=== PATIENT | male | born 1965 | race Hispanic/Latino ===

== ENCOUNTER 2021-06-23 10:57 | Inpatient (IN) | payer SELFPAY ==
[2021-06-23] MEDS ORDERED: methylPREDNISolone Sod Succinate 125 MG/2 ML INJ IV ONE (11:49)
[2021-06-23] MEDS ORDERED: ALBUTEROL 2.5 MG/3 ML NEBU IH ONE (11:49)
[2021-06-23] MEDS ORDERED: IPRATROPIUM 0.02% NEBU 2.5 ML IH ONE (11:49)
[2021-06-23] MEDS ORDERED: MAGNESIUM SULFATE 2 GM/50 ML BAG IV ONE (11:49)
--- NOTE | 2021-06-23 12:14 | Emergency Department Report ---
ED General Adult HPI - General Chief complaint: Dyspnea/Respdistress Stated complaint: DIFFICULTY BREATHING Time Seen by Provider: 06/23/21 11:48 Source: patient Mode of arrival: Stretcher Limitations: Physical Limitation - History of Present Illness Initial comments: The patient presents to the emergency department with a chief complaint of shortness of breath. Patient reportedly has a history of COPD. Upon EMS arrival to his home his O2 sats were in the 80s. Patient complains of shortness of breath but denies chest pain, abdominal pain, or headache. Patient is a moderate respiratory distress upon arrival to the ED. The patient is on 3 L O2 with O2 sats of 92%. The patient received a nebulizer treatment of albuterol prior to arrival to the ED. -: unknown Severity scale (0 -10): 0 Consistency: constant Improves with: none Worsens with: movement Associated Symptoms: denies other symptoms Treatments Prior to Arrival: none - Related Data Previous Rx's Medication Instructions Recorded Last Taken Type Aspirin [Aspirin Enteric Coated] 81 mg PO DAILY #90 tablet. 11/29/13 Unknown Rx Enalapril Maleate [Vasotec] 10 mg PO DAILY #90 tablet 11/29/13 Unknown Rx Gabapentin [Neurontin] 300 mg PO BID #60 capsule 11/29/13 Unknown Rx Insulin Regular, Human [HumuLIN R] 25 unit SQ ACHS #10 ml 11/29/13 Unknown Rx Ranitidine HCl [Zantac] 150 mg PO BID #60 tablet 11/29/13 Unknown Rx Syring-Needl,Disp,Insul,0.3 ml 1 each ACHS #120 disp.syrin 11/29/13 Unknown Rx [Insulin Syringe] Albuterol Sulfate [Ventolin HFA] 2 puff IH Q4H PRN #1 hfa.aer.ad 01/10/14 Unknown Rx Azithromycin [Zithromax Z-BRIAN] 250 mg PO DAILY #6 tablet 01/10/14 Unknown Rx predniSONE [Deltasone] 20 mg PO QDAY #5 tab 01/10/14 Unknown Rx Allergies Allergy/AdvReac Type Severity Reaction Status Date / Time acetaminophen [From Lortab] Allergy Unknown Verified 11/29/13 13:07 codeine Allergy Unknown Verified 11/29/13 13:07 hydrocodone bitartrate Allergy Unknown Verified 11/29/13 13:07 [From Lortab] oxycodone HCl [From Percocet] Allergy Unknown Verified 11/29/13 13:07 Penicillins Allergy Unknown Verified 11/29/13 13:07 ED Review of Systems ROS: Stated complaint: DIFFICULTY BREATHING Other details as noted in HPI Comment: All other systems reviewed and negative Constitutional: denies: chills, fever Eyes: denies: eye pain, eye discharge, vision change ENT: denies: ear pain, throat pain Respiratory: shortness of breath. denies: cough, wheezing Cardiovascular: denies: chest pain, palpitations Endocrine: no symptoms reported Gastrointestinal: denies: abdominal pain, nausea, diarrhea Genitourinary: denies: urgency, dysuria Musculoskeletal: denies: back pain, joint swelling, arthralgia Skin: denies: rash, lesions Neurological: denies: headache, weakness, paresthesias Psychiatric: denies: anxiety, depression Hematological/Lymphatic: denies: easy bleeding, easy bruising ED Past Medical Hx - Past Medical History Hx Hypertension: Yes Hx Diabetes: Yes Hx COPD: Yes Additional medical history: neuropathy, varicose veins - Social History Smoking Status: Current Every Day Smoker Substance Use Type: Alcohol, Marijuana, Non Opiate Pain - Medications Home Medications: Home Medications Medication Instructions Recorded Confirmed Last Taken Type Aspirin [Aspirin Enteric Coated] 81 mg PO DAILY #90 tablet. 11/29/13 Unknown Rx Enalapril Maleate [Vasotec] 10 mg PO DAILY #90 tablet 11/29/13 Unknown Rx Gabapentin [Neurontin] 300 mg PO BID #60 capsule 11/29/13 Unknown Rx Insulin Regular, Human [HumuLIN R] 25 unit SQ ACHS #10 ml 11/29/13 Unknown Rx Ranitidine HCl [Zantac] 150 mg PO BID #60 tablet 11/29/13 Unknown Rx Syring-Needl,Disp,Insul,0.3 ml 1 each ACHS #120 disp.syrin 11/29/13 Unknown Rx [Insulin Syringe] Albuterol Sulfate [Ventolin HFA] 2 puff IH Q4H PRN #1 hfa.aer.ad 01/10/14 Unknown Rx Azithromycin [Zithromax Z-BRIAN] 250 mg PO DAILY #6 tablet 01/10/14 Unknown Rx predniSONE [Deltasone] 20 mg PO QDAY #5 tab 01/10/14 Unknown Rx ED Physical Exam - General General appearance: alert, in no apparent distress - Head Head exam: Present: atraumatic, normocephalic - Eye Eye exam: Present: normal appearance - ENT ENT exam: Present: mucous membranes moist - Neck Neck exam: Present: normal inspection - Respiratory Respiratory exam: Present: respiratory distress (Moderate), rales, decreased breath sounds - Cardiovascular Cardiovascular Exam: Present: normal rhythm, tachycardia. Absent: systolic murmur, diastolic murmur, rubs, gallop - GI/Abdominal GI/Abdominal exam: Present: soft, normal bowel sounds. Absent: distended, tenderness - Rectal Rectal exam: Present: deferred - Extremities Exam Extremities exam: Present: normal inspection - Back Exam Back exam: Present: normal inspection - Neurological Exam Neurological exam: Present: alert, oriented X3, CN II-XII intact. Absent: motor sensory deficit - Psychiatric Psychiatric exam: Present: normal affect, normal mood - Skin Skin exam: Present: warm, dry, intact, normal color. Absent: rash ED Course Vital Signs 06/23/21 06/23/21 06/23/21 10:57 12:33 14:31 Temperature 98.1 F Pulse Rate 131 H 123 H 123 H Respiratory 24 28 H 30 H Rate Blood Pressure 126/66 133/61 132/61 [Left] O2 Sat by Pulse 92 91 91 Oximetry 06/23/21 15:02 Temperature Pulse Rate Respiratory Rate Blood Pressure [Left] O2 Sat by Pulse 88 Oximetry ED Medical Decision Making - Lab Data Result diagrams: 06/23/21 Unknown 06/23/21 Unknown Lab Results 06/23/21 06/23/21 06/23/21 Range/Units Unknown Unknown Unknown WBC 25.3 H (4.5-11.0) K/mm3 RBC 5.47 H (3.65-5.03) M/mm3 Hgb 16.2 H (11.8-15.2) gm/dl Hct 49.2 H (35.5-45.6) % MCV 90 (84-94) fl MCH 30 (28-32) pg MCHC 33 (32-34) % RDW 13.4 (13.2-15.2) % Plt Count 155 (140-440) K/mm3 Seg Neutrophils % [employer] PT (12.2-14.9) Sec. INR (0.87-1.13) APTT (24.2-36.6) Sec. Sodium 128 L (137-145) mmol/L Potassium 4.0 (3.6-5.0) mmol/L Chloride 90.7 L (98-107) mmol/L Carbon Dioxide 21 L (22-30) mmol/L Anion Gap 20 mmol/L BUN 24 H (9-20) mg/dL Creatinine 0.3 L (0.8-1.3) mg/dL Estimated GFR > 60 ml/min BUN/Creatinine Ratio 80 % Glucose 370 H (75-100) mg/dL Lactic Acid 4.60 H* (0.7-2.0) mmol/L Calcium 8.6 (8.4-10.2) mg/dL Total Bilirubin 2.60 H (0.1-1.2) mg/dL AST 42 H (5-40) units/L ALT 36 (7-56) units/L Alkaline Phosphatase 69 (35-129) units/L Troponin T < 0.010 (0.00-0.029) ng/mL NT-Pro-B Natriuret Pep 2555 H (0-900) pg/mL Total Protein 6.8 (6.3-8.2) g/dL Albumin 2.9 L (3.9-5) g/dL Albumin/Globulin Ratio 0.7 % 12/14/21 Range/Units Unknown WBC (4.5-11.0) K/mm3 RBC (3.65-5.03) M/mm3 Hgb (11.8-15.2) gm/dl Hct (35.5-45.6) % MCV (84-94) fl MCH (28-32) pg MCHC (32-34) % RDW (13.2-15.2) % Plt Count (140-440) K/mm3 Seg Neutrophils % PT 17.8 H (12.2-14.9) Sec. INR 1.33 H (0.87-1.13) APTT 31.4 (24.2-36.6) Sec. Sodium (137-145) mmol/L Potassium (3.6-5.0) mmol/L Chloride (98-107) mmol/L Carbon Dioxide (22-30) mmol/L Anion Gap mmol/L BUN (9-20) mg/dL Creatinine (0.8-1.3) mg/dL Estimated GFR ml/min BUN/Creatinine Ratio % Glucose (75-100) mg/dL Lactic Acid (0.7-2.0) mmol/L Calcium (8.4-10.2) mg/dL Total Bilirubin (0.1-1.2) mg/dL AST (5-40) units/L ALT (7-56) units/L Alkaline Phosphatase (35-129) units/L Troponin T (0.00-0.029) ng/mL NT-Pro-B Natriuret Pep (0-900) pg/mL Total Protein (6.3-8.2) g/dL Albumin (3.9-5) g/dL Albumin/Globulin Ratio % - EKG Data -: EKG Interpreted by [place] EKG shows normal: sinus rhythm Rate: tachycardia - Radiology Data Radiology results: report reviewed - Medical Decision Making Sepsis protocol initiated Due to the patient's history of CHF with elevated BNP 30 cc/kg IV fluids not initiated due to concern of volume overload and respiratory failure Patient received IV antibiotics Critical Care Time: Yes Critical care time in (mins) excluding proc time.: 35 Critical care attestation.: If time is entered above; I have spent that time in minutes in the direct care of this critically ill patient, excluding procedure time. ED Disposition Clinical Impression: Sepsis, Pneumonia, Hypoxia Disposition: 09 ADMITTED INPATIENT Is pt being admited?: Yes Does the pt Need Aspirin: No Condition: Fair
--- NOTE | 2021-06-23 12:15 | XRay Report ---
CHEST 1 VIEW INDICATION / CLINICAL INFORMATION: Dyspnea. COMPARISON: 12/19/2014. FINDINGS: SUPPORT DEVICES: None. HEART / MEDIASTINUM: Cardiac silhouette is mildly enlarged. LUNGS / PLEURA: Left perihilar and infrahilar airspace disease. No pneumothorax. ADDITIONAL FINDINGS: No significant additional findings. IMPRESSION: Left perihilar and infrahilar airspace disease concerning for infection. Signer Name: Jacek Ware MD Signed: 06/23/2021 12:10 PM Workstation Name: [id number]
[2021-06-23] MEDS ORDERED: SODIUM CHLORIDE 0.9% 1000 ML 1,000 ML IV ONE (12:50)
[2021-06-23 13:52] LABS: Hematocrit 49.2 % (35.5-45.6); Hemoglobin 16.2 gm/dl (11.8-15.2); Mean Corpuscular HGB Conc 33 % (32-34); Mean Corpuscular Volume 90 fl (84-94); Platelet Count 155 K/mm3 (140-440); Red Blood Count 5.47 M/mm3 (3.65-5.03); Red Cell Distribution Width 13.4 % (13.2-15.2)
[2021-06-23 13:59] LABS: INR 1.33 (0.87-1.13)
[2021-06-23 14:00] LABS: Partial Thromboplastin Time 31.4 Sec. (24.2-36.6)
[2021-06-23 14:13] LABS: Alanine Aminotransferase 36 units/L (7-56); Albumin 2.9 g/dL (3.9-5); Blood Urea Nitrogen 24 mg/dL (9-20); Calcium 8.6 mg/dL (8.4-10.2); Hemolysis Index 116
[2021-06-23 14:24] LABS: BUN/Creatinine Ratio 80
[2021-06-23 16:05] LABS: Bilirubin,Urine NEG (Negative); Blood,Urine MOD (Negative); Color,Urine Yellow (Yellow)
[2021-06-23 16:15] LABS: Amphetamine Screen,Urine PRESUMPTIVE POSITIVE; Benzodiazepines Screen,Urine PRESUMPTIVE NEGATIVE; Cannabinoid Screen,Urine PRESUMPTIVE NEGATIVE; Cocaine Screen,Urine PRESUMPTIVE NEGATIVE; Methadone Screen,Urine PRESUMPTIVE NEGATIVE; Opiate Screen,Urine PRESUMPTIVE NEGATIVE
[2021-06-23 16:48] LABS: Band Neutrophils # (Manual) 1.2 K/mm3; Monocytes % (Manual) 8 % (0.0-7.3)
[2021-06-23 16:49] LABS: Platelet Estimate Consistent w Auto
[2021-06-24] MEDS ORDERED: ALPRAZolam 0.25 MG TAB ONE (00:04)
[2021-06-24] MEDS: ALPRAZolam 0.25 MG TAB PO PRN (00:20)
[2021-06-24] MEDS ORDERED: INSULIN LISPRO 100 UNIT/ML SUB-Q ONE (00:42)
[2021-06-24] MEDS ORDERED: methylPREDNISolone Sod Succinate 125 MG/2 ML INJ IV SCH (06:00)
[2021-06-24] MEDS ORDERED: cefTRIAXone/NS 2 GM/100 ML 2 GM/100 ML BAG IV SCH (06:00)
--- NOTE | 2021-06-24 06:46 | History and Physical Report ---
History of Present Illness Date of examination: 06/23/21 Date of admission: 06/23/21 15:16 Chief complaint: Shortness of breath for 2 to 3 days History of present illness: 54-year-old male with history of insulin-dependent diabetes, hypertension and obesity presents to the emergency room with chief complaint of shortness of breath. As per EMS his oxygen sats were in the low 80s and they arrived at home. Patient complains of shortness of breath for the last 3 days. Patient phonating moderate respiratory distress and was brought to the emergency room. No fever or chills. Patient is a very poor historian. Does not do much information. Cough present. Vaccination status not known. Patient has a history of COPD. 3 L nasal cannula oxygen O2 sats improved to 92%. - Past Medical History --Hypertension: Yes --Diabetes: Yes --COPD: Yes Additional medical history: neuropathy, varicose veins - Social History --Smoking Status: Current Every Day Smoker --Substance Use Type: Alcohol, Marijuana, Non Opiate Pain - Medications --Home Medications: Home Medications Medication Instructions Recorded Confirmed Last Taken Type Aspirin [Aspirin Enteric Coated] 81 mg PO DAILY #90 tablet. 11/29/13 Unknown Rx Enalapril Maleate [Vasotec] 10 mg PO DAILY #90 tablet 11/29/13 Unknown Rx Gabapentin [Neurontin] 300 mg PO BID #60 capsule 11/29/13 Unknown Rx Insulin Regular, Human [HumuLIN R] 25 unit SQ ACHS #10 ml 11/29/13 Unknown Rx Ranitidine HCl [Zantac] 150 mg PO BID #60 tablet 11/29/13 Unknown Rx Syring-Needl,Disp,Insul,0.3 ml 1 each MC ACHS #120 disp.syrin 11/29/13 Unknown Rx [Insulin Syringe] Albuterol Sulfate [Ventolin HFA] 2 puff IH Q4H PRN #1 hfa.aer.ad 01/10/14 Unknown Rx Azithromycin [Zithromax Z-BRIAN] 250 mg PO DAILY #6 tablet 01/10/14 Unknown Rx predniSONE [Deltasone] 20 mg PO QDAY #5 tab 01/10/14 Unknown Rx Review of Systems ROS: Stated complaint: DIFFICULTY BREATHING Other details as noted in HPI Comment: All other systems reviewed and negative Constitutional: denies: chills, fever Eyes: denies: eye pain, eye discharge, vision change ENT: denies: ear pain, throat pain Respiratory: shortness of breath. denies: cough, wheezing Cardiovascular: denies: chest pain, palpitations Endocrine: no symptoms reported Gastrointestinal: denies: abdominal pain, nausea, diarrhea Genitourinary: denies: urgency, dysuria Musculoskeletal: denies: back pain, joint swelling, arthralgia Skin: denies: rash, lesions Neurological: denies: headache, weakness, paresthesias Psychiatric: denies: anxiety, depression Hematological/Lymphatic: denies: easy bleeding, easy bruising Medications and Allergies Allergies Allergy/AdvReac Type Severity Reaction Status Date / Time acetaminophen [From Lortab] Allergy Unknown Verified 11/29/13 13:07 codeine Allergy Unknown Verified 11/29/13 13:07 hydrocodone bitartrate Allergy Unknown Verified 11/29/13 13:07 [From Lortab] oxycodone HCl [From Percocet] Allergy Unknown Verified 11/29/13 13:07 Penicillins Allergy Unknown Verified 11/29/13 13:07 Home Medications Medication Instructions Recorded Confirmed Last Taken Type Aspirin [Aspirin Enteric Coated] 81 mg PO DAILY #90 tablet. 11/29/13 Unknown Rx Enalapril Maleate [Vasotec] 10 mg PO DAILY #90 tablet 11/29/13 Unknown Rx Gabapentin [Neurontin] 300 mg PO BID #60 capsule 11/29/13 Unknown Rx Insulin Regular, Human [HumuLIN R] 25 unit SQ ACHS #10 ml 11/29/13 Unknown Rx Ranitidine HCl [Zantac] 150 mg PO BID #60 tablet 11/29/13 Unknown Rx Syring-Needl,Disp,Insul,0.3 ml 1 each ACHS #120 disp.syrin 11/29/13 Unknown Rx [Insulin Syringe] Albuterol Sulfate [Ventolin HFA] 2 puff IH Q4H PRN #1 hfa.aer.ad 01/10/14 Unknown Rx Azithromycin [Zithromax Z-BRIAN] 250 mg PO DAILY #6 tablet 01/10/14 Unknown Rx predniSONE [Deltasone] 20 mg PO QDAY #5 tab 01/10/14 Unknown Rx Active Meds: Active Medications Albuterol (Albuterol 2.5 Mg/3 Ml Nebu) 2.5 mg IH Q6HRT YONAS Albuterol/Ipratropium (Ipratropium/Albuterol Sulfate 3 Ml Ampul.Neb) 1 ampul IH Q6HRT YONAS Alprazolam (Alprazolam 0.25 Mg Tab) 0.125 mg PO Q8H PRN PRN Reason: Anxiety Last Admin: 06/24/21 00:20 Dose: 0.125 mg Documented by: Azithromycin (Azithromycin 250 Mg Tab) 500 mg PO QDAY YONAS; Protocol Heparin Sodium (Porcine) (Heparin 5,000 Unit/1 Ml Vial) 5,000 unit SUB-Q Q12HR YONAS Ceftriaxone Sodium (Rocephin/Ns 2 Gm/100 Ml) 2 gm in 100 mls @ 200 mls/hr IV Q24H YONAS; Protocol Insulin Human Lispro (Insulin Lispro 100 Unit/Ml) 0 unit SUB-Q ACHS YONAS; Protocol Methylprednisolone Sodium Succinate (Methylprednisolone Sod Succinate 125 Mg/2 Ml Inj) 125 mg IV Q8HR YONAS Exam - Constitutional Vitals: Temp Pulse Resp BP Pulse Ox 98.4 F 123 H 32 H 130/60 93 06/23/21 19:45 06/24/21 04:00 06/24/21 04:00 06/24/21 04:00 06/24/21 04:00 General appearance: Present: severe distress, well-nourished - EENT Eyes: Present: PERRL ENT: hearing intact, clear oral mucosa - Neck Neck: Present: supple, normal ROM - Respiratory Respiratory effort: normal Respiratory: bilateral: CTA, rhonchi, wheezing - Cardiovascular Heart rate: 98 Rhythm: regular Heart Sounds: Present: S1 & S2. Absent: rub, click - Extremities Extremities: no ischemia, pulses intact, pulses symmetrical, No edema Peripheral Pulses: within normal limits - Abdominal General gastrointestinal: Present: soft, non-tender, non-distended, normal bowel sounds Male genitourinary: Present: normal - Rectal Rectal Exam: deferred - Integumentary Integumentary: Present: clear, warm, dry - Musculoskeletal Musculoskeletal: gait normal, strength equal bilaterally - Psychiatric Psychiatric: appropriate mood/affect, intact judgment & insight - Neurologic Neurologic: CNII-XII intact, moves all extremities - Allied Health Allied health notes reviewed: nursing, case management HEART Score - HEART Score History: Moderately suspicious Age: 45-65 Risk factors: > 3 risk factors or hx of atherosclerotic disease Troponin: Troponin T < 0.010 ng/mL (0.00-0.029) 06/23/21 Unknown Troponin: 1-3x normal limit - Critical Actions Critical Actions: 0-3 pts:0.9-1.7%risk of adverse cardiac event.Candidate for discharge Results - Labs CBC & Chem 7: 06/23/21 Unknown 06/23/21 Unknown Labs: Laboratory Last Values WBC 25.3 K/mm3 (4.5-11.0) H 06/23/21 Unknown RBC 5.47 M/mm3 (3.65-5.03) H 06/23/21 Unknown Hgb 16.2 gm/dl (11.8-15.2) H 06/23/21 Unknown Hct 49.2 % (35.5-45.6) H 06/23/21 Unknown MCV 90 fl (84-94) 06/23/21 Unknown MCH 30 pg (28-32) 06/23/21 Unknown MCHC 33 % (32-34) 06/23/21 Unknown RDW 13.4 % (13.2-15.2) 06/23/21 Unknown Plt Count 155 K/mm3 (140-440) 06/23/21 Unknown Add Manual Diff Complete 06/23/21 Unknown Seg Neutrophils % [employer] 06/23/21 Unknown Seg Neuts % (Manual) 82 % (40.0-70.0) H 06/23/21 Unknown Band Neutrophils % 5 % 06/23/21 Unknown Lymphocytes % (Manual) 5 % (13.4-35.0) L 06/23/21 Unknown Monocytes % (Manual) 8 % (0.0-7.3) H 06/23/21 Unknown Nucleated RBC % Not Reportable 06/23/21 Unknown Seg Neutrophils # Man 20.7 K/mm3 (1.8-7.7) H 06/23/21 Unknown Band Neutrophils # 1.2 K/mm3 06/23/21 Unknown Lymphocytes # (Manual) 1.2 K/mm3 (1.2-5.4) 06/23/21 Unknown Monocytes # (Manual) 2.0 K/mm3 (0.0-0.8) H 06/23/21 Unknown WBC Morphology Not Reportable 06/23/21 Unknown Hypersegmented Neuts Not Reportable 06/23/21 Unknown Hyposegmented Neuts Not Reportable 06/23/21 Unknown Hypogranular Neuts Not Reportable 06/23/21 Unknown Smudge Cells Not Reportable 06/23/21 Unknown Toxic Granulation Not Reportable 06/23/21 Unknown Toxic Vacuolation Not Reportable 06/23/21 Unknown Dohle Bodies Not Reportable 06/23/21 Unknown Pelger-Huet Anomaly Not Reportable 06/23/21 Unknown Rodney Rods Not Reportable 06/23/21 Unknown Platelet Estimate Consistent w auto 06/23/21 Unknown Clumped Platelets Not Reportable 06/23/21 Unknown Plt Clumps, EDTA Not Reportable 06/23/21 Unknown Large Platelets Not Reportable 06/23/21 Unknown Giant Platelets Not Reportable 06/23/21 Unknown Platelet Satelliting Not Reportable 06/23/21 Unknown Plt Morphology Comment Not Reportable 06/23/21 Unknown RBC Morphology Not Reportable 06/23/21 Unknown Dimorphic RBCs Not Reportable 06/23/21 Unknown Polychromasia Not Reportable 06/23/21 Unknown Hypochromasia Not Reportable 06/23/21 Unknown Poikilocytosis Not Reportable 06/23/21 Unknown Anisocytosis Not Reportable 06/23/21 Unknown Microcytosis Not Reportable 06/23/21 Unknown Macrocytosis Not Reportable 06/23/21 Unknown Spherocytes Not Reportable 06/23/21 Unknown Pappenheimer Bodies Not Reportable 06/23/21 Unknown Sickle Cells Not Reportable 06/23/21 Unknown Target Cells Not Reportable 06/23/21 Unknown Tear Drop Cells Not Reportable 06/23/21 Unknown Ovalocytes Not Reportable 06/23/21 Unknown Helmet Cells Not Reportable 06/23/21 Unknown Sarkar-Kittitas Bodies Not Reportable 06/23/21 Unknown Somers Rings Not Reportable 06/23/21 Unknown Ricardo Cells Not Reportable 06/23/21 Unknown Bite Cells Not Reportable 06/23/21 Unknown Crenated Cell Not Reportable 06/23/21 Unknown Elliptocytes Not Reportable 06/23/21 Unknown Acanthocytes (Spur) Not Reportable 06/23/21 Unknown Rouleaux Not Reportable 06/23/21 Unknown Hemoglobin C Crystals Not Reportable 06/23/21 Unknown Schistocytes Not Reportable 06/23/21 Unknown Malaria parasites Not Reportable 06/23/21 Unknown Lewis Bodies Not Reportable 06/23/21 Unknown Hem Pathologist Commnt No 06/23/21 Unknown PT 17.8 Sec. (12.2-14.9) H 06/23/21 Unknown INR 1.33 (0.87-1.13) H 06/23/21 Unknown APTT 31.4 Sec. (24.2-36.6) 06/23/21 Unknown Sodium 128 mmol/L (137-145) L 06/23/21 Unknown Potassium 4.0 mmol/L (3.6-5.0) 06/23/21 Unknown Chloride 90.7 mmol/L (98-107) L 06/23/21 Unknown Carbon Dioxide 21 mmol/L (22-30) L 06/23/21 Unknown Anion Gap 20 mmol/L 06/23/21 Unknown BUN 24 mg/dL (9-20) H 06/23/21 Unknown Creatinine 0.3 mg/dL (0.8-1.3) L 06/23/21 Unknown Estimated GFR > 60 ml/min 06/23/21 Unknown BUN/Creatinine Ratio 80 % 06/23/21 Unknown Glucose 370 mg/dL (75-100) H 06/23/21 Unknown POC Glucose 355 mg/dL (70-105) H 06/24/21 06:23 Lactic Acid 4.60 mmol/L (0.7-2.0) H* 06/23/21 Unknown Calcium 8.6 mg/dL (8.4-10.2) 06/23/21 Unknown Total Bilirubin 2.60 mg/dL (0.1-1.2) H 06/23/21 Unknown AST 42 units/L (5-40) H 06/23/21 Unknown ALT 36 units/L (7-56) 06/23/21 Unknown Alkaline Phosphatase 69 units/L (35-129) 06/23/21 Unknown Troponin T < 0.010 ng/mL (0.00-0.029) 06/23/21 Unknown NT-Pro-B Natriuret Pep 2555 pg/mL (0-900) H 06/23/21 Unknown Total Protein 6.8 g/dL (6.3-8.2) 06/23/21 Unknown Albumin 2.9 g/dL (3.9-5) L 06/23/21 Unknown Albumin/Globulin Ratio 0.7 % 06/23/21 Unknown Urine Color Yellow (Yellow) 06/23/21 Unknown Urine Turbidity Clear (Clear) 06/23/21 Unknown Urine pH 5.0 (5.0-7.0) 06/23/21 Unknown Ur Specific [place] 1.023 (1.003-1.030) 06/23/21 Unknown Urine Protein 100 mg/dl mg/dL (Negative) 06/23/21 Unknown Urine Glucose (UA) >=500 mg/dL (Negative) 06/23/21 Unknown Urine Ketones Tr mg/dL (Negative) 06/23/21 Unknown Urine Blood Mod (Negative) 06/23/21 Unknown Urine Nitrite Neg (Negative) 06/23/21 Unknown Urine Bilirubin Neg (Negative) 06/23/21 Unknown Urine Urobilinogen 2.0 mg/dL (<2.0) 06/23/21 Unknown Ur Leukocyte Esterase Neg (Negative) 06/23/21 Unknown Urine WBC (Auto) 3.0 /HPF (0.0-6.0) 06/23/21 Unknown Urine RBC (Auto) 1.0 /HPF (0.0-6.0) 06/23/21 Unknown U Epithel Cells (Auto) 1.0 /HPF (0-13.0) 06/23/21 Unknown Urine Opiates Screen Presumptive negative 06/23/21 Unknown Urine Methadone Screen Presumptive negative 06/23/21 Unknown Ur Barbiturates Screen Presumptive negative 06/23/21 Unknown Ur Phencyclidine Scrn Presumptive negative 06/23/21 Unknown Ur Amphetamines Screen Presumptive positive 06/23/21 Unknown U Benzodiazepines Scrn Presumptive negative 06/23/21 Unknown Urine Cocaine Screen Presumptive negative 06/23/21 Unknown U Marijuana (THC) Screen Presumptive negative 06/23/21 Unknown Drugs of Abuse Note Disclamer 06/23/21 Unknown Short CBC 06/23/21 Range/Units Unknown WBC 25.3 H (4.5-11.0) K/mm3 Hgb 16.2 H (11.8-15.2) gm/dl Hct 49.2 H (35.5-45.6) % Plt Count 155 (140-440) K/mm3 BMP 06/23/21 Unknown Sodium 128 L Potassium 4.0 Chloride 90.7 L Carbon Dioxide 21 L BUN 24 H Creatinine 0.3 L Glucose 370 H Calcium 8.6 Cardiac Enzymes 06/23/21 Range/Units Unknown Troponin T < 0.010 (0.00-0.029) ng/mL Liver Function 06/23/21 Range/Units Unknown Total Bilirubin 2.60 H (0.1-1.2) mg/dL AST 42 H (5-40) units/L ALT 36 (7-56) units/L Alkaline Phosphatase 69 (35-129) units/L Albumin 2.9 L (3.9-5) g/dL Urine 06/23/21 Range/Units Unknown Urine Color Yellow (Yellow) Urine pH 5.0 (5.0-7.0) Ur Specific [place] 1.023 (1.003-1.030) Urine Protein 100 mg/dl (Negative) mg/dL Urine Glucose (UA) >=500 (Negative) mg/dL Microbiology: Microbiology 06/23/21 13:15 Peripheral/Venous Blood Culture - Preliminary Culture in Progress 06/23/21 13:15 Peripheral/Venous Blood Culture - Preliminary Culture in Progress - Imaging and Cardiology EKG: report reviewed (Sinus tachycardia) Chest x-ray: report reviewed Imaging and Cardiology: Chest x-ray Left perihilar and infrahilar airspace disease concerning for infection Assessment and Plan Assessment and plan: Critical care statement The high probability OF a clinically significant sudden or life-threatening deterioration of the cardiorespiratory system and endocrine system required my full and direct attention, intervention and postoperative management. The aggregate critical care time was 40 minutes. The time is in addition to time spent performing reported procedures but includes the followin: Data review and interpretation 2: Patient assessment and monitoring of vital signs 3: Documentation 4:: Medication orders and management Advance Directives: Yes (Full code) VTE prophylaxis?: Chemical Plan of care discussed with patient/family: Yes - Patient Problems (1) Acute respiratory failure with hypoxia Current Visit: Yes Status: Acute Plan to address problem: Patient with acute respiratory failure with hypoxia Patient initiated on nebulizer treatments [id number] and as needed IV steroids IV antibiotics in the form of Zithromax and Rocephin (2) Sepsis Current Visit: Yes Status: Acute Qualifiers: Sepsis type: sepsis due to unspecified organism Sepsis acute organ dysfunction status: unspecified Qualified Code(s): A41.9 - Sepsis, unspecified organism Plan to address problem: Patient has a high white count elevated lactic acid of 4.6 Initiated on sepsis protocol Patient on ceftriaxone and Zithromax (3) Left lower lobe pneumonia Current Visit: Yes Status: Acute Qualifiers: Pneumonia type: due to unspecified organism Qualified Code(s): J18.9 - Pneumonia, unspecified organism Plan to address problem: Treat as community-acquired pneumonia Rule out Covid per protocol. (4) CHF (congestive heart failure) Current Visit: Yes Status: Acute Qualifiers: Heart failure type: combined systolic and diastolic Plan to address problem: Elevated BNP of 2555 Lasix IV 40 mg every 24 Echocardiogram for ejection fraction (5) Hyponatremia Current Visit: Yes Status: Acute Plan to address problem: Check serum osmolarity and urine osmolarity Dilutional On Lasix (6) IDDM (insulin dependent diabetes mellitus) Current Visit: Yes Status: Chronic Plan to address problem: Check hemoglobin A1c Continue home insulin and coverage with high-dose sliding scale protocol (7) Hypertension Current Visit: Yes Status: Chronic Qualifiers: Hypertension type: primary hypertension Qualified Code(s): I10 - Essential (primary) hypertension Plan to address problem: Continue antihypertensives and adjust medications as necessary (8) DVT prophylaxis Current Visit: Yes Status: Acute Plan to address problem: On anticoagulation GI prophylaxis (9) Advance care planning Current Visit: Yes Status: Acute
[2021-06-24] MEDS ORDERED: oxyCODONE /ACETAMINOPHEN 5-325MG TAB PO PRN (07:34)
[2021-06-24] MEDS ORDERED: ONDANSETRON 4 MG/2 ML INJ IV PRN (07:34)
[2021-06-24] MEDS ORDERED: METOCLOPRAMIDE 10 MG/2 ML INJ IV PRN (07:34)
[2021-06-24] MEDS ORDERED: HYDROmorphone 1 MG/1 ML INJ IV PRN (07:34)
[2021-06-24] MEDS ORDERED: IPRATROPIUM/ALBUTEROL SULFATE 3 ML AMPUL.NEB IH PRN (07:39)
[2021-06-24] MEDS ORDERED: ALBUTEROL 8.5 GM MDI INHALATION IH PRN (07:40)
[2021-06-24] MEDS ORDERED: ALBUTEROL 2.5 MG/3 ML NEBU IH SCH (08:00)
[2021-06-24] MEDS: INSULIN LISPRO 100 UNIT/ML SUB-Q SCH ×4 (08:15→23:33)
[2021-06-24] MEDS: IPRATROPIUM/ALBUTEROL SULFATE 3 ML AMPUL.NEB IH SCH ×2 (08:45→14:07)
[2021-06-24] MEDS ORDERED: RANITIDINE HCL 300 MG PO SCH (10:00)
[2021-06-24] MEDS ORDERED: AZITHROMYCIN 250 MG TAB PO SCH (10:00)
[2021-06-24] MEDS ORDERED: HEPARIN 5,000 UNIT/1 ML VIAL SUB-Q SCH (10:00)
[2021-06-24 10:01] LABS: Blood Urea Nitrogen 21 mg/dL (9-20); Hemolysis Index 97
[2021-06-24 10:10] LABS: BUN/Creatinine Ratio 42
[2021-06-24] MEDS: FAMOTIDINE 20 MG TAB PO SCH ×2 (10:38→23:02)
[2021-06-24] MEDS: GABAPENTIN 300 MG CAP PO SCH ×2 (10:38→23:02)
[2021-06-24] MEDS: ASPIRIN EC 81 MG TAB PO SCH (10:38)
--- NOTE | 2021-06-24 11:22 | Consultation ---
History of Present Illness Consult date: 06/24/21 Reason for consult: COPD, hypoxemia History of present illness: 55 y/o male admitted with acute on chronic respiratory failure from COPD exacerbation. CXR is abnormal and shows hilar infiltrates. Admitted and placed as a PUI. COVID test pending. Not sure how, but patient was admitted to ICU. CUrrently does not meet criteria for this. Past History Past Medical History: COPD, diabetes, hypertension Medications and Allergies Allergies Allergy/AdvReac Type Severity Reaction Status Date / Time acetaminophen [From Lortab] Allergy Unknown Verified 11/29/13 13:07 codeine Allergy Unknown Verified 11/29/13 13:07 hydrocodone bitartrate Allergy Unknown Verified 11/29/13 13:07 [From Lortab] oxycodone HCl [From Percocet] Allergy Unknown Verified 11/29/13 13:07 Penicillins Allergy Unknown Verified 11/29/13 13:07 Home Medications Medication Instructions Recorded Confirmed Last Taken Type Aspirin [Aspirin Enteric Coated] 81 mg PO DAILY #90 tablet. 11/29/13 Unknown Rx Enalapril Maleate [Vasotec] 10 mg PO DAILY #90 tablet 11/29/13 Unknown Rx Gabapentin [Neurontin] 300 mg PO BID #60 capsule 11/29/13 Unknown Rx Insulin Regular, Human [HumuLIN R] 25 unit SQ ACHS #10 ml 11/29/13 Unknown Rx Ranitidine HCl [Zantac] 150 mg PO BID #60 tablet 11/29/13 Unknown Rx Syring-Needl,Disp,Insul,0.3 ml 1 each MC ACHS #120 disp.syrin 11/29/13 Unknown Rx [Insulin Syringe] Albuterol Sulfate [Ventolin HFA] 2 puff IH Q4H PRN #1 hfa.aer.ad 01/10/14 Unknown Rx Azithromycin [Zithromax Z-BRIAN] 250 mg PO DAILY #6 tablet 01/10/14 Unknown Rx predniSONE [Deltasone] 20 mg PO QDAY #5 tab 01/10/14 Unknown Rx Active Meds: Active Medications Acetaminophen (Acetaminophen 325 Mg Tab) 650 mg PO Q4H PRN PRN Reason: Pain MILD(1-3)/Fever >100.5/DAS Albuterol (Albuterol 2.5 Mg/3 Ml Nebu) 2.5 mg IH Q6HRT YONAS Albuterol (Albuterol 8.5 Gm Mdi Inhalation) 2 puff IH Q4H PRN PRN Reason: Shortness Of Breath Albuterol/Ipratropium (Ipratropium/Albuterol Sulfate 3 Ml Ampul.Neb) 1 ampul IH Q6HRT [facility] Last Admin: 06/24/21 08:45 Dose: 1 ampul Documented by: Alprazolam (Alprazolam 0.25 Mg Tab) 0.125 mg PO Q8H PRN PRN Reason: Anxiety Last Admin: 06/24/21 00:20 Dose: 0.125 mg Documented by: Aspirin (Aspirin Ec 81 Mg Tab) 81 mg PO DAILY [facility] Azithromycin (Azithromycin 250 Mg Tab) 500 mg PO QDAY YONAS; Protocol Famotidine (Famotidine 20 Mg Tab) 20 mg PO BID [facility] Gabapentin (Gabapentin 300 Mg Cap) 300 mg PO BID [facility] Heparin Sodium (Porcine) (Heparin 5,000 Unit/1 Ml Vial) 5,000 unit SUB-Q Q12HR [facility] Hydromorphone HCl (Hydromorphone 1 Mg/1 Ml Inj) 0.5 mg IV Q3H PRN PRN Reason: Pain , Severe (7-10) Ceftriaxone Sodium (Rocephin/Ns 2 Gm/100 Ml) 2 gm in 100 mls @ 200 mls/hr IV Q24H YONAS; Protocol Insulin Human Lispro (Insulin Lispro 100 Unit/Ml) 0 unit SUB-Q ACHS YONAS; Protocol Methylprednisolone Sodium Succinate (Methylprednisolone Sod Succinate 40 Mg/1 Ml Inj) 60 mg IV Q8HR [facility] Metoclopramide HCl (Metoclopramide 10 Mg/2 Ml Inj) 10 mg IV Q6H PRN PRN Reason: Nausea And Vomiting Ondansetron HCl (Ondansetron 4 Mg/2 Ml Inj) 4 mg IV Q3H PRN PRN Reason: Nausea And Vomiting Oxycodone/Acetaminophen (Oxycodone /Acetaminophen 5-325mg Tab) 1 tab PO Q6H PRN PRN Reason: Pain, Moderate (4-6) Sodium Chloride (Sodium Chloride 0.9% 10 Ml Flush Syringe) 10 ml IV BID [facility] Sodium Chloride (Sodium Chloride 0.9% 10 Ml Flush Syringe) 10 ml IV PRN PRN PRN Reason: LINE FLUSH Review of Systems All systems: negative Physical Examination Vital signs: Vital Signs Temp Pulse Resp BP Pulse Ox 98.1 F 131 H 24 126/66 92 06/23/21 10:57 06/23/21 10:57 06/23/21 10:57 06/23/21 10:57 06/23/21 10:57 Results - Laboratory Findings CBC and BMP: 06/23/21 Unknown 06/24/21 08:17 PT/INR, D-dimer PT 17.8 Sec. (12.2-14.9) H 06/23/21 Unknown INR 1.33 (0.87-1.13) H 06/23/21 Unknown Abnormal lab findings: Abnormal Labs 06/23/21 06/23/21 06/23/21 15:28 23:49 Unknown WBC 25.3 H RBC 5.47 H Hgb 16.2 H Hct 49.2 H Seg Neuts % (Manual) 82 H Lymphocytes % (Manual) 5 L Monocytes % (Manual) 8 H Seg Neutrophils # Man 20.7 H Monocytes # (Manual) 2.0 H PT INR Sodium Chloride Carbon Dioxide BUN Creatinine Glucose POC Glucose 312 H Lactic Acid 4.60 H* Total Bilirubin AST NT-Pro-B Natriuret Pep Albumin 06/23/21 06/23/21 06/23/21 Unknown Unknown Unknown WBC RBC Hgb Hct Seg Neuts % (Manual) Lymphocytes % (Manual) Monocytes % (Manual) Seg Neutrophils # Man Monocytes # (Manual) PT 17.8 H INR 1.33 H Sodium 128 L Chloride 90.7 L Carbon Dioxide 21 L BUN 24 H Creatinine 0.3 L Glucose 370 H POC Glucose Lactic Acid 4.60 H* Total Bilirubin 2.60 H AST 42 H NT-Pro-B Natriuret Pep 2555 H Albumin 2.9 L 06/24/21 06/24/21 06/24/21 06:23 08:17 09:37 WBC RBC Hgb Hct Seg Neuts % (Manual) Lymphocytes % (Manual) Monocytes % (Manual) Seg Neutrophils # Man Monocytes # (Manual) PT INR Sodium 131 L Chloride 92.6 L Carbon Dioxide 20 L BUN 21 H Creatinine 0.5 L D Glucose 330 H POC Glucose 355 H 290 H Lactic Acid Total Bilirubin AST NT-Pro-B Natriuret Pep Albumin - Diagnostic Findings Chest x-ray: image reviewed Assessment and Plan 55 y/o male with acute exacerbation of COPD 1. Agree with abx therapy 2. Follow up COVID testing 3. MOnitor fluid balance and maintain daily net negative state 4. Decreased steroids to 60q8, this should help with blood sugar 5. Long acting insulin therapy and SSI coverage 6. Transfer to floor ([facility])
[2021-06-24] MEDS ORDERED: ALBUTEROL 2.5 MG/3 ML NEBU IH PRN (12:05)
--- NOTE | 2021-06-24 12:21 | Electrocardiograph Report ---
[facility] Test Date: 2021-06-23 Test Time: 11:39:58 Pat Name: EMRE WILLIAM Department: Room: A259 Gender: M [employer]: GOKUL : 1965 Requested By: CLAUDINE OLIVARES Order Number: [id number] Reading MD: Mikie Gasca Measurements Intervals [place] Rate: 129 P: 64 CO: 133 QRS: 35 QRSD: 99 T: 235 QT: 384 QTc: 564 Interpretive Statements Sinus tachycardia Nonspecific T abnormalities, lateral leads No previous ECG available for comparison Electronically Signed On 06-24-2021 12:21:16 EST by Mikie Gasca
[2021-06-24] MEDS ORDERED: INSULIN GLARGINE 100 UNITS/ML SUB-Q SCH (13:00)
[2021-06-24] MEDS: methylPREDNISolone Sod Succinate 40 MG/1 ML INJ IV SCH ×2 (14:52→23:14)
[2021-06-24 15:59] LABS: Hematocrit 45.8 % (35.5-45.6); Hemoglobin 14.5 gm/dl (11.8-15.2); Mean Corpuscular HGB Conc 32 % (32-34); Mean Corpuscular Volume 92 fl (84-94); Platelet Count 141 K/mm3 (140-440); Red Blood Count 4.98 M/mm3 (3.65-5.03); Red Cell Distribution Width 13.6 % (13.2-15.2)
[2021-06-24] MEDS ORDERED: VANCOMYCIN/NS 1 GM/250 ML 1 GM/250 ML BAG IV SCH (16:00)
--- NOTE | 2021-06-24 16:26 | Progress Note ---
<NATALYAVISHALElva - Last Filed: 06/24/21 16:24> Assessment and Plan Assessment and plan: This is a 55-year-old male with COPD, insulin-dependent diabetes complicated by neuropathy and hypertension admitted for COPD exacerbation, COVID-19 PUI, pneumonia Neuro: NAD -Reorientation as needed -Maintain sleep-wake cycle -Avoid delirium -As needed analgesia -As needed anxiolytics -Resume home gabapentin -UDS positive for amphetamine Cardio: h/o HTN -Blood pressure monitor per protocol -Resume home heart hypertensives as needed -Resume home aspirin Respiratory: COPD exacerbation, h/o COPD -CCM consulted, appreciate recommendations -Supplemental oxygen as needed -SPO2 monitoring -Pulmonary hygiene -Methylprednisone GI: Morbid obesity -ADA diet -Encouraged lifestyle and dietary changes upon discharge -24+210 mL -BR: Senokot -PPI : Hyponatremia, hypochloremia, metabolic acidosis -Trend BMP -Strict urine output -MIVF Endo: h/o IDDM -Hemoglobin A1c pending -Long-acting insulin, titrate as needed -SSI -Accu-Cheks AC at bedtime Heme: Leukocytosis -Monitor fever and WBC curve -Transfuse to hemoglobin of 7 -Trend CBC -SCDs to bilateral lower extremities while in bed -lovenox subq ID: Sepsis, lactic acidosis, left-sided pneumonia -Presents with lactic acid of 4.6, hypoxia, leukocytosis and pneumonia on CXR -CXR with left-sided pneumonia -COVID-19 PCR negative -Antibiotic therapy with cefepime, vancomycin -06/23 blood cultures with gram-positive cocci in pairs 3 out of 4 bottles -Follow-up blood and urine culture -Send sputum culture The high probability of a clinically significant, sudden or life threatening deterioration of the [pulm] system(s) required my full and direct attention, intervention and personal management. The aggregate critical care time was [60] minutes. This time is in addition to time spent performing reported procedures but includes the following: [x] Data Review and interpretation [x] Patient assessment and monitoring of vital signs [x] Documentation [x] Medication orders and management Disposition Plan: transfer to floor Total Time Spent with Patient (Minutes): 60 History Interval history: This is a 55-year-old male with COPD, insulin-dependent diabetes complicated by neuropathy, and hypertension who presented on 06/23 with complaints of shortness of breath via EMS who stated on their arrival patient's SPO2 was in the low 80s. He has been expressing shortness of breath for the past 3 days. He was placed on 3 L nasal cannula and his oxygen saturation increased to 92%. Work-up in the emergency department included a CXR which showed pneumonia and lab work showed leukocytosis, elevated INR, pseudohyponatremia, lactic acidosis and elevated proBNP. Patient was admitted to the hospital service to the ICU with consults to [facility] as a COVID-19 PUI with an acute exacerbation of COPD. 06/24: Patient has elevated blood glucose initiated on Lantus and SSI increased to high-dose. Solu-Medrol decreased. Blood culture grew gram-positive cocci in pairs and 3 out of 4 bottles. Antibiotics changed to vancomycin and cefepime from azithromycin and ceftriaxone. Hospitalist Physical - Constitutional Vitals: Temp Pulse Resp BP Pulse Ox 97.9 F 110 H 22 130/60 96 06/24/21 16:15 06/24/21 14:05 06/24/21 14:05 06/24/21 04:00 06/24/21 12:01 General appearance: Present: no acute distress, well-nourished, obese - EENT Eyes: Present: PERRL, EOM intact ENT: clear oral mucosa, dentition normal - Neck Neck: Present: normal ROM - Respiratory Respiratory effort: normal Respiratory: bilateral: diminished - Cardiovascular Rhythm: regular Heart Sounds: Present: S1 & S2. Absent: systolic murmur, diastolic murmur - Extremities Extremities: no ischemia, pulses intact, pulses symmetrical, No edema, normal temperature, normal color Peripheral Pulses: within normal limits - Abdominal General gastrointestinal: soft, non-tender, non-distended, normal bowel sounds - Integumentary Integumentary: Present: warm, dry - Psychiatric Psychiatric: cooperative - Neurologic Neurologic: CNII-XII intact, no focal deficits, moves all extremities - Allied Health Allied health notes reviewed: nursing, RT, social work HEART Score - HEART Score Age: 45-65 Risk factors: > 3 risk factors or hx of atherosclerotic disease Troponin: Troponin T < 0.010 ng/mL (0.00-0.029) 06/23/21 Unknown Troponin: 1-3x normal limit - Critical Actions Critical Actions: 0-3 pts:0.9-1.7%risk of adverse cardiac event.Candidate for discharge Results - Labs CBC & Chem 7: 06/24/21 15:11 06/24/21 08:17 Labs: Laboratory Last Values WBC 24.6 K/mm3 (4.5-11.0) H 06/24/21 15:11 RBC 4.98 M/mm3 (3.65-5.03) 06/24/21 15:11 Hgb 14.5 gm/dl (11.8-15.2) 06/24/21 15:11 Hct 45.8 % (35.5-45.6) H 06/24/21 15:11 MCV 92 fl (84-94) 06/24/21 15:11 MCH 29 pg (28-32) 06/24/21 15:11 MCHC 32 % (32-34) 06/24/21 15:11 RDW 13.6 % (13.2-15.2) 06/24/21 15:11 Plt Count 141 K/mm3 (140-440) 06/24/21 15:11 Add Manual Diff Complete 06/23/21 Unknown Seg Neutrophils % Pharmacy Director 06/24/21 15:11 Seg Neuts % (Manual) 82 % (40.0-70.0) H 06/23/21 Unknown Band Neutrophils % 5 % 06/23/21 Unknown Lymphocytes % (Manual) 5 % (13.4-35.0) L 06/23/21 Unknown Monocytes % (Manual) 8 % (0.0-7.3) H 06/23/21 Unknown Nucleated RBC % Not Reportable 06/23/21 Unknown Seg Neutrophils # Man 20.7 K/mm3 (1.8-7.7) H 06/23/21 Unknown Band Neutrophils # 1.2 K/mm3 06/23/21 Unknown Lymphocytes # (Manual) 1.2 K/mm3 (1.2-5.4) 06/23/21 Unknown Monocytes # (Manual) 2.0 K/mm3 (0.0-0.8) H 06/23/21 Unknown WBC Morphology Not Reportable 06/23/21 Unknown Hypersegmented Neuts Not Reportable 06/23/21 Unknown Hyposegmented Neuts Not Reportable 06/23/21 Unknown Hypogranular Neuts Not Reportable 06/23/21 Unknown Smudge Cells Not Reportable 06/23/21 Unknown Toxic Granulation Not Reportable 06/23/21 Unknown Toxic Vacuolation Not Reportable 06/23/21 Unknown Dohle Bodies Not Reportable 06/23/21 Unknown Pelger-Huet Anomaly Not Reportable 06/23/21 Unknown Rodney Rods Not Reportable 06/23/21 Unknown Platelet Estimate Consistent w auto 06/23/21 Unknown Clumped Platelets Not Reportable 06/23/21 Unknown Plt Clumps, EDTA Not Reportable 06/23/21 Unknown Large Platelets Not Reportable 06/23/21 Unknown Giant Platelets Not Reportable 06/23/21 Unknown Platelet Satelliting Not Reportable 06/23/21 Unknown Plt Morphology Comment Not Reportable 06/23/21 Unknown RBC Morphology Not Reportable 06/23/21 Unknown Dimorphic RBCs Not Reportable 06/23/21 Unknown Polychromasia Not Reportable 06/23/21 Unknown Hypochromasia Not Reportable 06/23/21 Unknown Poikilocytosis Not Reportable 06/23/21 Unknown Anisocytosis Not Reportable 06/23/21 Unknown Microcytosis Not Reportable 06/23/21 Unknown Macrocytosis Not Reportable 06/23/21 Unknown Spherocytes Not Reportable 06/23/21 Unknown Pappenheimer Bodies Not Reportable 06/23/21 Unknown Sickle Cells Not Reportable 06/23/21 Unknown Target Cells Not Reportable 06/23/21 Unknown Tear Drop Cells Not Reportable 06/23/21 Unknown Ovalocytes Not Reportable 06/23/21 Unknown Helmet Cells Not Reportable 06/23/21 Unknown [place] Bodies Not Reportable 06/23/21 Unknown [place] Rings Not Reportable 06/23/21 Unknown [place] Cells Not Reportable 06/23/21 Unknown Bite Cells Not Reportable 06/23/21 Unknown Crenated Cell Not Reportable 06/23/21 Unknown Elliptocytes Not Reportable 06/23/21 Unknown Acanthocytes (Spur) Not Reportable 06/23/21 Unknown Rouleaux Not Reportable 06/23/21 Unknown Hemoglobin C Crystals Not Reportable 06/23/21 Unknown Schistocytes Not Reportable 06/23/21 Unknown Malaria parasites Not Reportable 06/23/21 Unknown Lewis Bodies Not Reportable 06/23/21 Unknown Hem Pathologist Commnt No 06/23/21 Unknown PT 17.8 Sec. (12.2-14.9) H 06/23/21 Unknown INR 1.33 (0.87-1.13) H 06/23/21 Unknown APTT 31.4 Sec. (24.2-36.6) 06/23/21 Unknown Sodium 131 mmol/L (137-145) L 06/24/21 08:17 Potassium 4.5 mmol/L (3.6-5.0) 06/24/21 08:17 Chloride 92.6 mmol/L (98-107) L 06/24/21 08:17 Carbon Dioxide 20 mmol/L (22-30) L 06/24/21 08:17 Anion Gap 23 mmol/L 06/24/21 08:17 BUN 21 mg/dL (9-20) H 06/24/21 08:17 Creatinine 0.5 mg/dL (0.8-1.3) L D 06/24/21 08:17 Estimated GFR > 60 ml/min 06/24/21 08:17 BUN/Creatinine Ratio 42 % 06/24/21 08:17 Glucose 330 mg/dL (75-100) H 06/24/21 08:17 POC Glucose 303 mg/dL (70-105) H 06/24/21 15:53 Lactic Acid 4.60 mmol/L (0.7-2.0) H* 06/23/21 Unknown Calcium 9.0 mg/dL (8.4-10.2) 06/24/21 08:17 Phosphorus 2.90 mg/dL (2.5-4.5) 06/24/21 08:17 Magnesium 2.30 mg/dL (1.7-2.3) 06/24/21 08:17 Total Bilirubin 2.60 mg/dL (0.1-1.2) H 06/23/21 Unknown AST 42 units/L (5-40) H 06/23/21 Unknown ALT 36 units/L (7-56) 06/23/21 Unknown Alkaline Phosphatase 69 units/L (35-129) 06/23/21 Unknown Troponin T < 0.010 ng/mL (0.00-0.029) 06/23/21 Unknown NT-Pro-B Natriuret Pep 2555 pg/mL (0-900) H 06/23/21 Unknown Total Protein 6.8 g/dL (6.3-8.2) 06/23/21 Unknown Albumin 2.9 g/dL (3.9-5) L 06/23/21 Unknown Albumin/Globulin Ratio 0.7 % 06/23/21 Unknown Urine Color Yellow (Yellow) 06/23/21 Unknown Urine Turbidity Clear (Clear) 06/23/21 Unknown Urine pH 5.0 (5.0-7.0) 06/23/21 Unknown Ur Specific [place] 1.023 (1.003-1.030) 06/23/21 Unknown Urine Protein 100 mg/dl mg/dL (Negative) 06/23/21 Unknown Urine Glucose (UA) >=500 mg/dL (Negative) 06/23/21 Unknown Urine Ketones Tr mg/dL (Negative) 06/23/21 Unknown Urine Blood Mod (Negative) 06/23/21 Unknown Urine Nitrite Neg (Negative) 06/23/21 Unknown Urine Bilirubin Neg (Negative) 06/23/21 Unknown Urine Urobilinogen 2.0 mg/dL (<2.0) 06/23/21 Unknown Ur Leukocyte Esterase Neg (Negative) 06/23/21 Unknown Urine WBC (Auto) 3.0 /HPF (0.0-6.0) 06/23/21 Unknown Urine RBC (Auto) 1.0 /HPF (0.0-6.0) 06/23/21 Unknown U Epithel Cells (Auto) 1.0 /HPF (0-13.0) 06/23/21 Unknown Urine Opiates Screen Presumptive negative 06/23/21 Unknown Urine Methadone Screen Presumptive negative 06/23/21 Unknown Ur Barbiturates Screen Presumptive negative 06/23/21 Unknown Ur Phencyclidine Scrn Presumptive negative 06/23/21 Unknown Ur Amphetamines Screen Presumptive positive 06/23/21 Unknown U Benzodiazepines Scrn Presumptive negative 06/23/21 Unknown Urine Cocaine Screen Presumptive negative 06/23/21 Unknown U Marijuana (THC) Screen Presumptive negative 06/23/21 Unknown Drugs of Abuse Note Disclamer 06/23/21 Unknown Coronavirus (PCR) Negative (Negative) 06/24/21 Unknown Microbiology: Microbiology 06/23/21 13:15 Peripheral/Venous Blood Culture - Preliminary 06/23/21 13:15 Peripheral/Venous Blood Culture - Preliminary 06/23/21 Unknown Urine,Clean Catch Urine Culture - Preliminary NO GROWTH AFTER 24 HOURS Active Medications - Current Medications Current Medications: Generic Name Dose Route Start Last Admin Trade Name Freq PRN Reason Stop Dose Admin Acetaminophen 650 mg 06/24/21 07:34 Acetaminophen 325 Mg Tab PO Q4H PRN Pain MILD(1-3)/Fever >100.5/DAS Albuterol 2 puff 06/24/21 07:40 Albuterol 8.5 Gm Mdi Inhalation IH Q4H PRN Shortness Of Breath Albuterol 2.5 mg 06/24/21 12:05 Albuterol 2.5 Mg/3 Ml Nebu IH Q4HRT PRN Shortness Of Breath Albuterol/Ipratropium 1 ampul 06/24/21 08:00 06/24/21 14:07 Ipratropium/Albuterol Sulfate 3 Ml Ampul.Neb IH 1 ampul Q6HRT YONAS Administration Alprazolam 0.125 mg 06/24/21 05:04 06/24/21 00:20 Alprazolam 0.25 Mg Tab PO 0.125 mg Q8H PRN Administration Anxiety Aspirin 81 mg 06/24/21 10:00 06/24/21 10:38 Aspirin Ec 81 Mg Tab PO 81 mg DAILY YONAS Administration Famotidine 20 mg 06/24/21 10:00 06/24/21 10:38 Famotidine 20 Mg Tab PO 20 mg BID YONAS Administration Gabapentin 300 mg 06/24/21 10:00 06/24/21 10:38 Gabapentin 300 Mg Cap PO 300 mg BID YONAS Administration Heparin Sodium (Porcine) 5,000 unit 06/24/21 10:00 06/24/21 10:39 Heparin 5,000 Unit/1 Ml Vial SUB-Q 5,000 unit Q12HR YONAS Administration Hydromorphone HCl 0.5 mg 06/24/21 07:34 Hydromorphone 1 Mg/1 Ml Inj IV Q3H PRN Pain , Severe (7-10) Cefepime HCl 1 gm in 100 mls @ 200 mls/hr 06/24/21 16:00 Cefepime/Ns 1 Gm/100 Ml IV Q8H YONAS Protocol Vancomycin HCl 1 gm in 250 mls @ 166.667 mls/hr 06/24/21 16:00 Vancomycin/Ns 1 Gm/250 Ml IV Q12H [facility] Protocol Insulin Glargine 15 units 06/24/21 13:00 06/24/21 13:40 Insulin Glargine 100 Units/Ml SUB-Q 15 units QDDIAB YONAS Administration Insulin Human Lispro 0 unit 06/24/21 07:30 06/24/21 12:00 Insulin Lispro 100 Unit/Ml SUB-Q 4 unit ACHS YONAS Administration Protocol Methylprednisolone Sodium Succinate 60 mg 06/24/21 14:00 06/24/21 14:52 Methylprednisolone Sod Succinate 40 Mg/1 Ml Inj IV 60 mg Q8HR YONAS Administration Metoclopramide HCl 10 mg 06/24/21 07:34 Metoclopramide 10 Mg/2 Ml Inj IV Q6H PRN Nausea And Vomiting Ondansetron HCl 4 mg 06/24/21 07:34 Ondansetron 4 Mg/2 Ml Inj IV Q3H PRN Nausea And Vomiting Oxycodone/Acetaminophen 1 tab 06/24/21 07:34 Oxycodone /Acetaminophen 5-325mg Tab PO Q6H PRN Pain, Moderate (4-6) Senna 17.2 mg 06/24/21 22:00 Sennosides 8.6 Mg Tab PO QHS YONAS Sodium Chloride 10 ml 06/24/21 10:00 06/24/21 10:40 Sodium Chloride 0.9% 10 Ml Flush Syringe IV 10 ml BID YONAS Administration Sodium Chloride 10 ml 06/24/21 07:34 Sodium Chloride 0.9% 10 Ml Flush Syringe IV PRN PRN LINE FLUSH <CARLOS GALARZA - Last Filed: 06/26/21 15:31> Assessment and Plan Assessment and plan: I saw and evaluated the patient. Discussed with the nurse practitioner and agree with their findings and plan as documented in this note. Hospitalist Physical - Constitutional Vitals: Temp Pulse Resp BP Pulse Ox 98.1 F 75 22 133/68 93 06/26/21 13:55 06/26/21 13:55 06/26/21 13:55 06/26/21 13:55 06/26/21 13:55 HEART Score - HEART Score Troponin: Troponin T < 0.010 ng/mL (0.00-0.029) 06/23/21 Unknown Results - Labs CBC & Chem 7: 06/25/21 08:05 06/26/21 08:18 Labs: Laboratory Last Values WBC 16.2 K/mm3 (4.5-11.0) H 06/25/21 08:05 RBC 5.42 M/mm3 (3.65-5.03) H 06/25/21 08:05 Hgb 15.6 gm/dl (11.8-15.2) H 06/25/21 08:05 Hct 48.9 % (35.5-45.6) H 06/25/21 08:05 MCV 90 fl (84-94) 06/25/21 08:05 MCH 29 pg (28-32) 06/25/21 08:05 MCHC 32 % (32-34) 06/25/21 08:05 RDW 13.7 % (13.2-15.2) 06/25/21 08:05 Plt Count 144 K/mm3 (140-440) 06/25/21 08:05 Add Manual Diff Complete 06/24/21 15:11 Total Counted 100 06/24/21 15:11 Seg Neutrophils % Pharmacy Director 06/24/21 15:11 Seg Neuts % (Manual) 88.0 % (40.0-70.0) H 06/24/21 15:11 Band Neutrophils % 3.0 % 06/24/21 15:11 Lymphocytes % (Manual) 5.0 % (13.4-35.0) L 06/24/21 15:11 Monocytes % (Manual) 4.0 % (0.0-7.3) 06/24/21 15:11 Nucleated RBC % Not Reportable 06/24/21 15:11 Seg Neutrophils # Man 21.6 K/mm3 (1.8-7.7) H 06/24/21 15:11 Band Neutrophils # 0.7 K/mm3 06/24/21 15:11 Lymphocytes # (Manual) 1.2 K/mm3 (1.2-5.4) 06/24/21 15:11 Abs React Lymphs (Man) 0.0 K/mm3 06/24/21 15:11 Monocytes # (Manual) 1.0 K/mm3 (0.0-0.8) H 06/24/21 15:11 Eosinophils # (Manual) 0.0 K/mm3 (0.0-0.4) 06/24/21 15:11 Basophils # (Manual) 0.0 K/mm3 (0.0-0.1) 06/24/21 15:11 Metamyelocytes # 0.0 K/mm3 06/24/21 15:11 Myelocytes # 0.0 K/mm3 06/24/21 15:11 Promyelocytes # 0.0 K/mm3 06/24/21 15:11 Blast Cells # 0.0 K/mm3 06/24/21 15:11 WBC Morphology Not Reportable 06/24/21 15:11 Hypersegmented Neuts Not Reportable 06/24/21 15:11 Hyposegmented Neuts Not Reportable 06/24/21 15:11 Hypogranular Neuts Not Reportable 06/24/21 15:11 Smudge Cells Not Reportable 06/24/21 15:11 Toxic Granulation Not Reportable 06/24/21 15:11 Toxic Vacuolation Not Reportable 06/24/21 15:11 Dohle Bodies Not Reportable 06/24/21 15:11 Pelger-Huet Anomaly Not Reportable 06/24/21 15:11 Rodney Rods Not Reportable 06/24/21 15:11 Platelet Estimate Consistent w auto 06/24/21 15:11 Clumped Platelets Not Reportable 06/24/21 15:11 Plt Clumps, EDTA Not Reportable 06/24/21 15:11 Large Platelets 1+ 06/24/21 15:11 Giant Platelets Not Reportable 06/24/21 15:11 Platelet Satelliting Not Reportable 06/24/21 15:11 Plt Morphology Comment Not Reportable 06/24/21 15:11 RBC Morphology Not Reportable 06/24/21 15:11 Dimorphic RBCs Not Reportable 06/24/21 15:11 Polychromasia Not Reportable 06/24/21 15:11 Hypochromasia Not Reportable 06/24/21 15:11 Poikilocytosis Not Reportable 06/24/21 15:11 Anisocytosis Not Reportable 06/24/21 15:11 Microcytosis Not Reportable 06/24/21 15:11 Macrocytosis Not Reportable 06/24/21 15:11 Spherocytes Not Reportable 06/24/21 15:11 Pappenheimer Bodies Not Reportable 06/24/21 15:11 Sickle Cells Not Reportable 06/24/21 15:11 Target Cells Not Reportable 06/24/21 15:11 Tear Drop Cells Not Reportable 06/24/21 15:11 Ovalocytes Not Reportable 06/24/21 15:11 Helmet Cells Not Reportable 06/24/21 15:11 [place] Bodies Not Reportable 06/24/21 15:11 [place] Rings Not Reportable 06/24/21 15:11 [place] Cells Not Reportable 06/24/21 15:11 Bite Cells Not Reportable 06/24/21 15:11 Crenated Cell Not Reportable 06/24/21 15:11 Elliptocytes Not Reportable 06/24/21 15:11 Acanthocytes (Spur) Not Reportable 06/24/21 15:11 Rouleaux Not Reportable 06/24/21 15:11 Hemoglobin C Crystals Not Reportable 06/24/21 15:11 Schistocytes Not Reportable 06/24/21 15:11 Malaria parasites Not Reportable 06/24/21 15:11 Lewis Bodies Not Reportable 06/24/21 15:11 Hem Pathologist Commnt No 06/24/21 15:11 PT 17.8 Sec. (12.2-14.9) H 06/23/21 Unknown INR 1.33 (0.87-1.13) H 06/23/21 Unknown APTT 31.4 Sec. (24.2-36.6) 06/23/21 Unknown Sodium 133 mmol/L (137-145) L 06/26/21 08:18 Potassium 4.6 mmol/L (3.6-5.0) 06/26/21 08:18 Chloride 96.9 mmol/L (98-107) L 06/26/21 08:18 Carbon Dioxide 20 mmol/L (22-30) L 06/26/21 08:18 Anion Gap 21 mmol/L 06/26/21 08:18 BUN 27 mg/dL (9-20) H 06/26/21 08:18 Creatinine 0.4 mg/dL (0.8-1.3) L 06/26/21 08:18 Estimated GFR > 60 ml/min 06/26/21 08:18 BUN/Creatinine Ratio 68 % 06/26/21 08:18 Glucose 357 mg/dL (75-100) H 06/26/21 08:18 POC Glucose 419 mg/dL (70-105) H 06/26/21 11:56 Hemoglobin A1c 12.0 % (4-6) H 06/25/21 08:05 Lactic Acid 4.60 mmol/L (0.7-2.0) H* 06/23/21 Unknown Calcium 8.5 mg/dL (8.4-10.2) 06/26/21 08:18 Phosphorus 2.90 mg/dL (2.5-4.5) 06/24/21 08:17 Magnesium 2.30 mg/dL (1.7-2.3) 06/24/21 08:17 Total Bilirubin 2.60 mg/dL (0.1-1.2) H 06/23/21 Unknown AST 42 units/L (5-40) H 06/23/21 Unknown ALT 36 units/L (7-56) 06/23/21 Unknown Alkaline Phosphatase 69 units/L (35-129) 06/23/21 Unknown Troponin T < 0.010 ng/mL (0.00-0.029) 06/23/21 Unknown NT-Pro-B Natriuret Pep 2555 pg/mL (0-900) H 06/23/21 Unknown Total Protein 6.8 g/dL (6.3-8.2) 06/23/21 Unknown Albumin 2.9 g/dL (3.9-5) L 06/23/21 Unknown Albumin/Globulin Ratio 0.7 % 06/23/21 Unknown Urine Color Yellow (Yellow) 06/23/21 Unknown Urine Turbidity Clear (Clear) 06/23/21 Unknown Urine pH 5.0 (5.0-7.0) 06/23/21 Unknown Ur Specific [place] 1.023 (1.003-1.030) 06/23/21 Unknown Urine Protein 100 mg/dl mg/dL (Negative) 06/23/21 Unknown Urine Glucose (UA) >=500 mg/dL (Negative) 06/23/21 Unknown Urine Ketones Tr mg/dL (Negative) 06/23/21 Unknown Urine Blood Mod (Negative) 06/23/21 Unknown Urine Nitrite Neg (Negative) 06/23/21 Unknown Urine Bilirubin Neg (Negative) 06/23/21 Unknown Urine Urobilinogen 2.0 mg/dL (<2.0) 06/23/21 Unknown Ur Leukocyte Esterase Neg (Negative) 06/23/21 Unknown Urine WBC (Auto) 3.0 /HPF (0.0-6.0) 06/23/21 Unknown Urine RBC (Auto) 1.0 /HPF (0.0-6.0) 06/23/21 Unknown U Epithel Cells (Auto) 1.0 /HPF (0-13.0) 06/23/21 Unknown Vancomycin Trough 7.4 ug/mL (5.0-20.0) 06/26/21 06:01 Urine Opiates Screen Presumptive negative 06/23/21 Unknown Urine Methadone Screen Presumptive negative 06/23/21 Unknown Ur Barbiturates Screen Presumptive negative 06/23/21 Unknown Ur Phencyclidine Scrn Presumptive negative 06/23/21 Unknown Ur Amphetamines Screen Presumptive positive 06/23/21 Unknown U Benzodiazepines Scrn Presumptive negative 06/23/21 Unknown Urine Cocaine Screen Presumptive negative 06/23/21 Unknown U Marijuana (THC) Screen Presumptive negative 06/23/21 Unknown Drugs of Abuse Note Disclamer 06/23/21 Unknown Coronavirus (PCR) Negative (Negative) 06/24/21 Unknown Microbiology: Microbiology 06/23/21 13:15 Peripheral/Venous Blood Culture - Preliminary Streptococcus Pneumoniae 06/23/21 13:15 Peripheral/Venous Blood Culture - Preliminary Streptococcus Pneumoniae 06/25/21 16:06 Peripheral/Venous Blood Culture - Preliminary Culture in Progress 06/25/21 16:15 Peripheral/Venous Blood Culture - Preliminary Culture in Progress Ayala/IV: Voiding Method Urinal Active Medications - Current Medications Current Medications: Generic Name Dose Route Start Last Admin Trade Name Freq PRN Reason Stop Dose Admin Acetaminophen 650 mg 06/24/21 07:34 Acetaminophen 325 Mg Tab PO Q4H PRN Pain MILD(1-3)/Fever >100.5/DAS Albuterol 2.5 mg 06/24/21 12:05 Albuterol 2.5 Mg/3 Ml Nebu IH Q4HRT PRN Shortness Of Breath Alprazolam 0.125 mg 06/24/21 05:04 06/26/21 15:22 Alprazolam 0.25 Mg Tab PO 0.125 mg Q8H PRN Administration Anxiety Aspirin 81 mg 06/24/21 10:00 06/26/21 11:14 Aspirin Ec 81 Mg Tab PO 81 mg DAILY YONAS Administration Famotidine 20 mg 06/24/21 10:00 06/26/21 11:14 Famotidine 20 Mg Tab PO 20 mg BID YONAS Administration Ceftriaxone Sodium 2 gm in 100 mls @ 200 mls/hr 06/25/21 14:00 06/26/21 11:14 Rocephin/Ns 2 Gm/100 Ml IV 200 mls/hr Q24HR YONAS Administration Protocol Insulin Glargine 40 units 06/26/21 09:00 06/26/21 11:17 Insulin Glargine 100 Units/Ml SUB-Q 40 units QAMDIAB YONAS Administration Insulin Human Lispro 0 unit 06/24/21 07:30 06/26/21 12:55 Insulin Lispro 100 Unit/Ml SUB-Q 10 unit ACHS YONAS Administration Protocol Insulin Human Regular 10 units 06/26/21 11:30 06/26/21 12:54 Insulin Regular, Human 100 Units/1 Ml SUB-Q 10 units ACHS YONAS Administration Methylprednisolone Sodium Succinate 40 mg 06/26/21 10:00 06/26/21 11:23 Methylprednisolone Sod Succinate 40 Mg/1 Ml Inj IV 40 mg Q12HR YONAS Administration Ondansetron HCl 4 mg 06/24/21 07:34 Ondansetron 4 Mg/2 Ml Inj IV Q3H PRN Nausea And Vomiting Senna 17.2 mg 06/24/21 22:00 06/25/21 23:11 Sennosides 8.6 Mg Tab PO 17.2 mg QHS YONAS Administration Sodium Chloride 10 ml 06/24/21 10:00 06/26/21 11:15 Sodium Chloride 0.9% 10 Ml Flush Syringe IV 10 ml BID YONAS Administration Sodium Chloride 10 ml 06/24/21 07:34 Sodium Chloride 0.9% 10 Ml Flush Syringe IV PRN PRN LINE FLUSH
[2021-06-24 16:29] LABS: Band Neutrophils # (Manual) 0.7 K/mm3; Total Cells Counted 100
[2021-06-24 16:30] LABS: Large Platelets 1+; Platelet Estimate Consistent w Auto
[2021-06-24] MEDS: CEFEPIME/NS 1 GM/100 ML 1 GM/100 ML BAG IV SCH (17:58)
[2021-06-24] MEDS ORDERED: VANCOMYCIN PHARMACY TO DOSE IV SCH ×2 (19:00→19:38)
[2021-06-24] MEDS ORDERED: IPRATROPIUM/ALBUTEROL SULFATE 3 ML AMPUL.NEB IH ONE (19:39)
[2021-06-24] MEDS: VANCOMYCIN 2,000 MG in SODIUM CHLORIDE 0.9% 500 ML 500 ML IV SCH (23:01)
[2021-06-24] MEDS: SENNOSIDES 8.6 MG TAB PO SCH (23:02)
[2021-06-25] MEDS: CEFEPIME/NS 1 GM/100 ML 1 GM/100 ML BAG IV SCH ×2 (01:55→21:01)
[2021-06-25] MEDS ORDERED: methylPREDNISolone Sod Succinate 125 MG/2 ML INJ IV SCH (06:00)
[2021-06-25] MEDS: methylPREDNISolone Sod Succinate 40 MG/1 ML INJ IV SCH ×3 (06:36→22:24)
[2021-06-25] MEDS: VANCOMYCIN 2,000 MG in SODIUM CHLORIDE 0.9% 500 ML 500 ML IV SCH ×2 (06:37→17:18)
--- NOTE | 2021-06-25 07:59 | Progress Note ---
Assessment and Plan Assessment and plan: This is a 55-year-old male with COPD, insulin-dependent diabetes complicated by neuropathy and hypertension admitted for COPD exacerbation, COVID-19 PUI, pneumonia Interval history: This is a 55-year-old male with COPD, insulin-dependent diabetes complicated by neuropathy, and hypertension who presented on 06/23 with complaints of shortness of breath via EMS who stated on their arrival patient's SPO2 was in the low 80s. He has been expressing shortness of breath for the past 3 days. He was placed on 3 L nasal cannula and his oxygen saturation increased to 92%. Work-up in the emergency department included a CXR which showed pneumonia and lab work showed leukocytosis, elevated INR, pseudohyponatremia, lactic acidosis and elevated proBNP. Patient was admitted to the hospital service to the ICU with consults to CCM as a COVID-19 PUI with an acute exacerbation of COPD. 06/24: Patient has elevated blood glucose initiated on Lantus and SSI increased to high-dose. Solu-Medrol decreased. Blood culture grew gram-positive cocci in pairs and 3 out of 4 bottles. Antibiotics changed to vancomycin and cefepime from azithromycin and ceftriaxone. 06/25: Drowsy/Delirious this AM. Reoriented on bedside encounter. VSS stable. Patient had gabapentin this morning in addition having irregular sleep/wake cycles in icu. Will d/c gabapentin and ensure adequate sunlight during day as well as quiet/dark environment at night for patient. Repeat blood cultures obtained as admit blood cx grew gpc 3/4 bottles. NO fevers overnight. Continuing empiric coverage with vanc/cefepime IV. ID consultation obtained. Blood sugars also very elevated. RN just admin lantus and regular insulin this AM. Will escalate as needed for tighter glycemic control. PT assessment is also pending. Assessment and Plan Neuro: NAD -Reorientation as needed -Maintain sleep-wake cycle -Avoid delirium -As needed analgesia -As needed anxiolytics -Resume home gabapentin -UDS positive for amphetamine Cardio: h/o HTN -Blood pressure monitor per protocol -Resume home heart hypertensives as needed -Resume home aspirin Respiratory: COPD exacerbation, h/o COPD -CCM consulted, appreciate recommendations -Supplemental oxygen as needed -SPO2 monitoring -Pulmonary hygiene -Methylprednisone GI: Morbid obesity -ADA diet -Encouraged lifestyle and dietary changes upon discharge -24+210 mL -BR: Senokot -PPI : Hyponatremia, hypochloremia, metabolic acidosis -Trend BMP -Strict urine output -MIVF Endo: h/o IDDM -Hemoglobin A1c pending -Long-acting insulin, titrate as needed -SSI -Accu-Cheks AC at bedtime Heme: Leukocytosis -Monitor fever and WBC curve -Transfuse to hemoglobin of 7 -Trend CBC -SCDs to bilateral lower extremities while in bed -lovenox subq ID: Sepsis, lactic acidosis, left-sided pneumonia -Presents with lactic acid of 4.6, hypoxia, leukocytosis and pneumonia on CXR -CXR with left-sided pneumonia -COVID-19 PCR negative -Antibiotic therapy with cefepime, vancomycin -06/23 blood cultures with gram-positive cocci in pairs 3 out of 4 bottles -Follow-up repeat blood and urine culture -Send sputum culture -infectious disease consultation History Interval history: Drowsy/Delirious this AM. Reoriented on bedside encounter. VSS stable. Hospitalist Physical - Physical exam Narrative exam: General appearance: Present: no acute distress, well-nourished, obese - EENT Eyes: Present: PERRL, EOM intact ENT: clear oral mucosa, dentition normal - Neck Neck: Present: normal ROM - Respiratory Respiratory effort: normal Respiratory: bilateral: diminished - Cardiovascular Rhythm: regular Heart Sounds: Present: S1 & S2. Absent: systolic murmur, diastolic murmur - Extremities Extremities: no ischemia, pulses intact, pulses symmetrical, No edema, normal temperature, normal color Peripheral Pulses: within normal limits - Abdominal General gastrointestinal: soft, non-tender, non-distended, normal bowel sounds - Integumentary Integumentary: Present: warm, dry - Psychiatric Psychiatric: cooperative - Neurologic Neurologic: CNII-XII intact, no focal deficits, moves all extremities - Allied Health Allied health notes reviewed: nursing, RT, social work - Constitutional Vitals: Temp Pulse Resp BP Pulse Ox 98.8 F 96 H 18 131/83 92 06/25/21 05:04 06/25/21 05:04 06/25/21 05:04 06/25/21 05:04 06/25/21 05:04 General appearance: Present: no acute distress, well-nourished, obese HEART Score - HEART Score Age: 45-65 Risk factors: > 3 risk factors or hx of atherosclerotic disease Troponin: Troponin T < 0.010 ng/mL (0.00-0.029) 06/23/21 Unknown Troponin: 1-3x normal limit - Critical Actions Critical Actions: 0-3 pts:0.9-1.7%risk of adverse cardiac event.Candidate for discharge Results - Labs CBC & Chem 7: 06/25/21 08:05 06/25/21 08:05 Labs: Laboratory Last Values WBC 24.6 K/mm3 (4.5-11.0) H 06/24/21 15:11 RBC 4.98 M/mm3 (3.65-5.03) 06/24/21 15:11 Hgb 14.5 gm/dl (11.8-15.2) 06/24/21 15:11 Hct 45.8 % (35.5-45.6) H 06/24/21 15:11 MCV 92 fl (84-94) 06/24/21 15:11 MCH 29 pg (28-32) 06/24/21 15:11 MCHC 32 % (32-34) 06/24/21 15:11 RDW 13.6 % (13.2-15.2) 06/24/21 15:11 Plt Count 141 K/mm3 (140-440) 06/24/21 15:11 Add Manual Diff Complete 06/24/21 15:11 Total Counted 100 06/24/21 15:11 Seg Neutrophils % Bilingual Administrative Assistant 06/24/21 15:11 Seg Neuts % (Manual) 88.0 % (40.0-70.0) H 06/24/21 15:11 Band Neutrophils % 3.0 % 06/24/21 15:11 Lymphocytes % (Manual) 5.0 % (13.4-35.0) L 06/24/21 15:11 Monocytes % (Manual) 4.0 % (0.0-7.3) 06/24/21 15:11 Nucleated RBC % Not Reportable 06/24/21 15:11 Seg Neutrophils # Man 21.6 K/mm3 (1.8-7.7) H 06/24/21 15:11 Band Neutrophils # 0.7 K/mm3 06/24/21 15:11 Lymphocytes # (Manual) 1.2 K/mm3 (1.2-5.4) 06/24/21 15:11 Abs React Lymphs (Man) 0.0 K/mm3 06/24/21 15:11 Monocytes # (Manual) 1.0 K/mm3 (0.0-0.8) H 06/24/21 15:11 Eosinophils # (Manual) 0.0 K/mm3 (0.0-0.4) 06/24/21 15:11 Basophils # (Manual) 0.0 K/mm3 (0.0-0.1) 06/24/21 15:11 Metamyelocytes # 0.0 K/mm3 06/24/21 15:11 Myelocytes # 0.0 K/mm3 06/24/21 15:11 Promyelocytes # 0.0 K/mm3 06/24/21 15:11 Blast Cells # 0.0 K/mm3 06/24/21 15:11 WBC Morphology Not Reportable 06/24/21 15:11 Hypersegmented Neuts Not Reportable 06/24/21 15:11 Hyposegmented Neuts Not Reportable 06/24/21 15:11 Hypogranular Neuts Not Reportable 06/24/21 15:11 Smudge Cells Not Reportable 06/24/21 15:11 Toxic Granulation Not Reportable 06/24/21 15:11 Toxic Vacuolation Not Reportable 06/24/21 15:11 Dohle Bodies Not Reportable 06/24/21 15:11 Pelger-Huet Anomaly Not Reportable 06/24/21 15:11 Rodney Rods Not Reportable 06/24/21 15:11 Platelet Estimate Consistent w auto 06/24/21 15:11 Clumped Platelets Not Reportable 06/24/21 15:11 Plt Clumps, EDTA Not Reportable 06/24/21 15:11 Large Platelets 1+ 06/24/21 15:11 Giant Platelets Not Reportable 06/24/21 15:11 Platelet Satelliting Not Reportable 06/24/21 15:11 Plt Morphology Comment Not Reportable 06/24/21 15:11 RBC Morphology Not Reportable 06/24/21 15:11 Dimorphic RBCs Not Reportable 06/24/21 15:11 Polychromasia Not Reportable 06/24/21 15:11 Hypochromasia Not Reportable 06/24/21 15:11 Poikilocytosis Not Reportable 06/24/21 15:11 Anisocytosis Not Reportable 06/24/21 15:11 Microcytosis Not Reportable 06/24/21 15:11 Macrocytosis Not Reportable 06/24/21 15:11 Spherocytes Not Reportable 06/24/21 15:11 Pappenheimer Bodies Not Reportable 06/24/21 15:11 Sickle Cells Not Reportable 06/24/21 15:11 Target Cells Not Reportable 06/24/21 15:11 Tear Drop Cells Not Reportable 06/24/21 15:11 Ovalocytes Not Reportable 06/24/21 15:11 Helmet Cells Not Reportable 06/24/21 15:11 Sarkar-Sedgwick Bodies Not Reportable 06/24/21 15:11 [place] Rings Not Reportable 06/24/21 15:11 Ricardo Cells Not Reportable 06/24/21 15:11 Bite Cells Not Reportable 06/24/21 15:11 Crenated Cell Not Reportable 06/24/21 15:11 Elliptocytes Not Reportable 06/24/21 15:11 Acanthocytes (Spur) Not Reportable 06/24/21 15:11 Rouleaux Not Reportable 06/24/21 15:11 Hemoglobin C Crystals Not Reportable 06/24/21 15:11 Schistocytes Not Reportable 06/24/21 15:11 Malaria parasites Not Reportable 06/24/21 15:11 Lewis Bodies Not Reportable 06/24/21 15:11 Hem Pathologist Commnt No 06/24/21 15:11 PT 17.8 Sec. (12.2-14.9) H 06/23/21 Unknown INR 1.33 (0.87-1.13) H 06/23/21 Unknown APTT 31.4 Sec. (24.2-36.6) 06/23/21 Unknown Sodium 131 mmol/L (137-145) L 06/24/21 08:17 Potassium 4.5 mmol/L (3.6-5.0) 06/24/21 08:17 Chloride 92.6 mmol/L (98-107) L 06/24/21 08:17 Carbon Dioxide 20 mmol/L (22-30) L 06/24/21 08:17 Anion Gap 23 mmol/L 06/24/21 08:17 BUN 21 mg/dL (9-20) H 06/24/21 08:17 Creatinine 0.5 mg/dL (0.8-1.3) L D 06/24/21 08:17 Estimated GFR > 60 ml/min 06/24/21 08:17 BUN/Creatinine Ratio 42 % 06/24/21 08:17 Glucose 330 mg/dL (75-100) H 06/24/21 08:17 POC Glucose 413 mg/dL (70-105) H 06/25/21 07:22 Lactic Acid 4.60 mmol/L (0.7-2.0) H* 06/23/21 Unknown Calcium 9.0 mg/dL (8.4-10.2) 06/24/21 08:17 Phosphorus 2.90 mg/dL (2.5-4.5) 06/24/21 08:17 Magnesium 2.30 mg/dL (1.7-2.3) 06/24/21 08:17 Total Bilirubin 2.60 mg/dL (0.1-1.2) H 06/23/21 Unknown AST 42 units/L (5-40) H 06/23/21 Unknown ALT 36 units/L (7-56) 06/23/21 Unknown Alkaline Phosphatase 69 units/L (35-129) 06/23/21 Unknown Troponin T < 0.010 ng/mL (0.00-0.029) 06/23/21 Unknown NT-Pro-B Natriuret Pep 2555 pg/mL (0-900) H 06/23/21 Unknown Total Protein 6.8 g/dL (6.3-8.2) 06/23/21 Unknown Albumin 2.9 g/dL (3.9-5) L 06/23/21 Unknown Albumin/Globulin Ratio 0.7 % 06/23/21 Unknown Urine Color Yellow (Yellow) 06/23/21 Unknown Urine Turbidity Clear (Clear) 06/23/21 Unknown Urine pH 5.0 (5.0-7.0) 06/23/21 Unknown Ur Specific [place] 1.023 (1.003-1.030) 06/23/21 Unknown Urine Protein 100 mg/dl mg/dL (Negative) 06/23/21 Unknown Urine Glucose (UA) >=500 mg/dL (Negative) 06/23/21 Unknown Urine Ketones Tr mg/dL (Negative) 06/23/21 Unknown Urine Blood Mod (Negative) 06/23/21 Unknown Urine Nitrite Neg (Negative) 06/23/21 Unknown Urine Bilirubin Neg (Negative) 06/23/21 Unknown Urine Urobilinogen 2.0 mg/dL (<2.0) 06/23/21 Unknown Ur Leukocyte Esterase Neg (Negative) 06/23/21 Unknown Urine WBC (Auto) 3.0 /HPF (0.0-6.0) 06/23/21 Unknown Urine RBC (Auto) 1.0 /HPF (0.0-6.0) 06/23/21 Unknown U Epithel Cells (Auto) 1.0 /HPF (0-13.0) 06/23/21 Unknown Urine Opiates Screen Presumptive negative 06/23/21 Unknown Urine Methadone Screen Presumptive negative 06/23/21 Unknown Ur Barbiturates Screen Presumptive negative 06/23/21 Unknown Ur Phencyclidine Scrn Presumptive negative 06/23/21 Unknown Ur Amphetamines Screen Presumptive positive 06/23/21 Unknown U Benzodiazepines Scrn Presumptive negative 06/23/21 Unknown Urine Cocaine Screen Presumptive negative 06/23/21 Unknown U Marijuana (THC) Screen Presumptive negative 06/23/21 Unknown Drugs of Abuse Note Disclamer 06/23/21 Unknown Coronavirus (PCR) Negative (Negative) 06/24/21 Unknown Microbiology: Microbiology 06/23/21 13:15 Peripheral/Venous Blood Culture - Preliminary 06/23/21 13:15 Peripheral/Venous Blood Culture - Preliminary 06/23/21 Unknown Urine,Clean Catch Urine Culture - Preliminary NO GROWTH AFTER 24 HOURS Active Medications - Current Medications Current Medications: Generic Name Dose Route Start Last Admin Trade Name Freq PRN Reason Stop Dose Admin Acetaminophen 650 mg 06/24/21 07:34 Acetaminophen 325 Mg Tab PO Q4H PRN Pain MILD(1-3)/Fever >100.5/DAS Albuterol 2 puff 06/24/21 07:40 Albuterol 8.5 Gm Mdi Inhalation IH Q4H PRN Shortness Of Breath Albuterol 2.5 mg 06/24/21 12:05 Albuterol 2.5 Mg/3 Ml Nebu IH Q4HRT PRN Shortness Of Breath Alprazolam 0.125 mg 06/24/21 05:04 06/24/21 00:20 Alprazolam 0.25 Mg Tab PO 0.125 mg Q8H PRN Administration Anxiety Aspirin 81 mg 06/24/21 10:00 06/24/21 10:38 Aspirin Ec 81 Mg Tab PO 81 mg DAILY YONAS Administration Enoxaparin Sodium 115 mg 06/25/21 10:00 Enoxaparin 100 Mg/1 Ml Inj SUB-Q Q24HR [facility] Protocol Famotidine 20 mg 06/24/21 10:00 06/24/21 23:02 Famotidine 20 Mg Tab PO 20 mg BID YONAS Administration Gabapentin 300 mg 06/24/21 10:00 06/24/21 23:02 Gabapentin 300 Mg Cap PO 300 mg BID YONAS Administration Cefepime HCl 1 gm in 100 mls @ 200 mls/hr 06/24/21 16:00 06/25/21 01:55 Cefepime/Ns 1 Gm/100 Ml IV 200 mls/hr Q8H YONAS Administration Protocol Vancomycin HCl 2,000 mg/ 540 mls @ 250 mls/hr 06/24/21 18:15 06/25/21 06:37 Sodium Chloride IV 250 mls/hr Q12H YONAS Administration Insulin Glargine 20 units 06/25/21 08:00 Insulin Glargine 100 Units/Ml SUB-Q QAMDIAB YONAS Insulin Human Lispro 0 unit 06/24/21 07:30 06/24/21 23:33 Insulin Lispro 100 Unit/Ml SUB-Q 10 unit ACHS YONAS Administration Protocol Methylprednisolone Sodium Succinate 60 mg 06/25/21 06:00 06/25/21 06:36 Methylprednisolone Sod Succinate 40 Mg/1 Ml Inj IV 60 mg Q8HR YONAS Administration Ondansetron HCl 4 mg 06/24/21 07:34 Ondansetron 4 Mg/2 Ml Inj IV Q3H PRN Nausea And Vomiting Senna 17.2 mg 06/24/21 22:00 06/24/21 23:02 Sennosides 8.6 Mg Tab PO 17.2 mg QHS YONAS Administration Sodium Chloride 10 ml 06/24/21 10:00 06/24/21 23:08 Sodium Chloride 0.9% 10 Ml Flush Syringe IV 10 ml BID YONAS Administration Sodium Chloride 10 ml 06/24/21 07:34 Sodium Chloride 0.9% 10 Ml Flush Syringe IV PRN PRN LINE FLUSH
[2021-06-25] MEDS ORDERED: INSULIN GLARGINE 100 UNITS/ML SUB-Q SCH (08:00)
[2021-06-25 08:57] LABS: Hematocrit 48.9 % (35.5-45.6); Hemoglobin 15.6 gm/dl (11.8-15.2); Mean Corpuscular HGB Conc 32 % (32-34); Mean Corpuscular Volume 90 fl (84-94); Platelet Count 144 K/mm3 (140-440); Red Blood Count 5.42 M/mm3 (3.65-5.03); Red Cell Distribution Width 13.7 % (13.2-15.2)
[2021-06-25] MEDS ORDERED: CEFEPIME/NS 2 GM/100 ML 2 GM/100 ML BAG IV SCH (09:00)
[2021-06-25] MEDS: INSULIN LISPRO 100 UNIT/ML SUB-Q SCH ×4 (09:00→22:20)
[2021-06-25] MEDS: GABAPENTIN 300 MG CAP PO SCH (09:01)
[2021-06-25] MEDS: FAMOTIDINE 20 MG TAB PO SCH ×2 (09:01→22:22)
[2021-06-25] MEDS: ASPIRIN EC 81 MG TAB PO SCH (09:01)
[2021-06-25 09:14] LABS: Blood Urea Nitrogen 25 mg/dL (9-20); Calcium 8.7 mg/dL (8.4-10.2); Hemolysis Index 62
[2021-06-25 09:19] LABS: BUN/Creatinine Ratio 63
[2021-06-25] MEDS ORDERED: ENOXAPARIN 100 MG/1 ML INJ SUB-Q SCH (10:00)
[2021-06-25] MEDS ORDERED: ENOXAPARIN 120 MG/0.8 ML INJ SUB-Q SCH (10:00)
--- NOTE | 2021-06-25 12:05 | Progress Note ---
Assessment and Plan 55 y/o male with acute exacerbation of COPD 06/25/21: Continue abx. Continue steroids. Insulin coverage. 1. Agree with abx therapy 2. Follow up COVID testing 3. MOnitor fluid balance and maintain daily net negative state 4. Decreased steroids to 60q8, this should help with blood sugar 5. Long acting insulin therapy and SSI coverage 6. Transfer to floor ([facility]) Subjective Date of service: 06/25/21 Interval history: No acute events. Successful transfer out of unit. Somewhat groggy this am. Objective Vital Signs - 12hr 06/25/21 06/25/21 06/25/21 05:04 09:25 10:00 Temperature 98.8 F 97.0 F L Pulse Rate 96 H 89 Respiratory 18 20 20 Rate Blood Pressure 131/83 Blood Pressure 127/68 [Left] O2 Sat by Pulse 92 94 Oximetry CBC and BMP: 06/25/21 08:05 06/26/21 08:18 ABG, PT/INR, D-dimer: PT/INR, D-dimer PT 17.8 Sec. (12.2-14.9) H 06/23/21 Unknown INR 1.33 (0.87-1.13) H 06/23/21 Unknown Abnormal lab findings: Abnormal Labs 06/23/21 06/23/21 06/23/21 15:28 23:49 Unknown WBC 25.3 H RBC 5.47 H Hgb 16.2 H Hct 49.2 H Seg Neuts % (Manual) 82 H Lymphocytes % (Manual) 5 L Monocytes % (Manual) 8 H Seg Neutrophils # Man 20.7 H Monocytes # (Manual) 2.0 H PT INR Sodium Chloride Carbon Dioxide BUN Creatinine Glucose POC Glucose 312 H Hemoglobin A1c Lactic Acid 4.60 H* Total Bilirubin AST NT-Pro-B Natriuret Pep Albumin 06/23/21 06/23/21 06/23/21 Unknown Unknown Unknown WBC RBC Hgb Hct Seg Neuts % (Manual) Lymphocytes % (Manual) Monocytes % (Manual) Seg Neutrophils # Man Monocytes # (Manual) PT 17.8 H INR 1.33 H Sodium 128 L Chloride 90.7 L Carbon Dioxide 21 L BUN 24 H Creatinine 0.3 L Glucose 370 H POC Glucose Hemoglobin A1c Lactic Acid 4.60 H* Total Bilirubin 2.60 H AST 42 H NT-Pro-B Natriuret Pep 2555 H Albumin 2.9 L 06/24/21 06/24/21 06/24/21 06:23 08:17 09:37 WBC RBC Hgb Hct Seg Neuts % (Manual) Lymphocytes % (Manual) Monocytes % (Manual) Seg Neutrophils # Man Monocytes # (Manual) PT INR Sodium 131 L Chloride 92.6 L Carbon Dioxide 20 L BUN 21 H Creatinine 0.5 L D Glucose 330 H POC Glucose 355 H 290 H Hemoglobin A1c Lactic Acid Total Bilirubin AST NT-Pro-B Natriuret Pep Albumin 06/24/21 06/24/21 06/24/21 11:26 14:55 15:11 WBC 24.6 H RBC Hgb Hct 45.8 H Seg Neuts % (Manual) 88.0 H Lymphocytes % (Manual) 5.0 L Monocytes % (Manual) Seg Neutrophils # Man 21.6 H Monocytes # (Manual) 1.0 H PT INR Sodium Chloride Carbon Dioxide BUN Creatinine Glucose POC Glucose 280 H 290 H Hemoglobin A1c Lactic Acid Total Bilirubin AST NT-Pro-B Natriuret Pep Albumin 06/24/21 06/24/21 06/25/21 15:53 23:13 07:22 WBC RBC Hgb Hct Seg Neuts % (Manual) Lymphocytes % (Manual) Monocytes % (Manual) Seg Neutrophils # Man Monocytes # (Manual) PT INR Sodium Chloride Carbon Dioxide BUN Creatinine Glucose POC Glucose 303 H 382 H 413 H Hemoglobin A1c Lactic Acid Total Bilirubin AST NT-Pro-B Natriuret Pep Albumin 06/25/21 06/25/21 06/25/21 08:05 08:05 08:05 WBC 16.2 H RBC 5.42 H Hgb 15.6 H Hct 48.9 H Seg Neuts % (Manual) Lymphocytes % (Manual) Monocytes % (Manual) Seg Neutrophils # Man Monocytes # (Manual) PT INR Sodium 131 L Chloride 94.1 L Carbon Dioxide BUN 25 H Creatinine 0.4 L Glucose 413 H POC Glucose Hemoglobin A1c 12.0 H Lactic Acid Total Bilirubin AST NT-Pro-B Natriuret Pep Albumin 06/25/21 06/25/21 09:22 11:57 WBC RBC Hgb Hct Seg Neuts % (Manual) Lymphocytes % (Manual) Monocytes % (Manual) Seg Neutrophils # Man Monocytes # (Manual) PT INR Sodium Chloride Carbon Dioxide BUN Creatinine Glucose POC Glucose 449 H 395 H Hemoglobin A1c Lactic Acid Total Bilirubin AST NT-Pro-B Natriuret Pep Albumin
--- NOTE | 2021-06-25 13:31 | Consultation ---
History of Present Illness - Reason for Consult Consult date: 06/25/21 pneumonia, bacteremia Requesting physician: CARLOS GALARZA - History of Present Illness The patient is a 55-year-old male with diabetes, hypertension, obesity, COPD admitted with shortness of breath for 2 to 3 days. Initially admitted as COVID- 19 PUI, test came back negative. Chest x-ray did show bilateral pneumonia. Blood cultures turn positive for GPC, hence infectious diseases was consulted. Has been afebrile, labs revealed leukocytosis, uncontrolled diabetes. Urinary tox screen was positive for amphetamines. Review of Systems: Drowsy, unable to obtain Past History Past Medical History: COPD, diabetes, hypertension Medications and Allergies Allergies Allergy/AdvReac Type Severity Reaction Status Date / Time acetaminophen [From Lortab] Allergy Unknown Verified 11/29/13 13:07 codeine Allergy Unknown Verified 11/29/13 13:07 hydrocodone bitartrate Allergy Unknown Verified 11/29/13 13:07 [From Lortab] oxycodone HCl [From Percocet] Allergy Unknown Verified 11/29/13 13:07 Penicillins Allergy Unknown Verified 11/29/13 13:07 Home Medications Medication Instructions Recorded Confirmed Last Taken Type Aspirin [Aspirin Enteric Coated] 81 mg PO DAILY #90 tablet. 11/29/13 06/25/21 Unknown Rx Enalapril Maleate [Vasotec] 10 mg PO DAILY #90 tablet 11/29/13 06/25/21 Unknown Rx Gabapentin [Neurontin] 300 mg PO BID #60 capsule 11/29/13 06/25/21 Unknown Rx Insulin Regular, Human [HumuLIN R] 25 unit SQ ACHS #10 ml 11/29/13 06/25/21 Unknown Rx Ranitidine HCl [Zantac] 150 mg PO BID #60 tablet 11/29/13 06/25/21 Unknown Rx Syring-Needl,Disp,Insul,0.3 ml 1 each MC ACHS #120 disp.syrin 11/29/13 06/25/21 Unknown Rx [Insulin Syringe] Albuterol Sulfate [Ventolin HFA] 2 puff IH Q4H PRN #1 hfa.aer.ad 01/10/14 06/25/21 Unknown Rx Azithromycin [Zithromax Z-BRIAN] 250 mg PO DAILY #6 tablet 01/10/14 06/25/21 Unknown Rx predniSONE [Deltasone] 20 mg PO QDAY #5 tab 01/10/14 06/25/21 Unknown Rx Active Meds: Active Medications Acetaminophen (Acetaminophen 325 Mg Tab) 650 mg PO Q4H PRN PRN Reason: Pain MILD(1-3)/Fever >100.5/DAS Albuterol (Albuterol 8.5 Gm Mdi Inhalation) 2 puff IH Q4H PRN PRN Reason: Shortness Of Breath Albuterol (Albuterol 2.5 Mg/3 Ml Nebu) 2.5 mg IH Q4HRT PRN PRN Reason: Shortness Of Breath Alprazolam (Alprazolam 0.25 Mg Tab) 0.125 mg PO Q8H PRN PRN Reason: Anxiety Last Admin: 06/24/21 00:20 Dose: 0.125 mg Documented by: Aspirin (Aspirin Ec 81 Mg Tab) 81 mg PO DAILY [facility] Last Admin: 06/25/21 09:01 Dose: 81 mg Documented by: Famotidine (Famotidine 20 Mg Tab) 20 mg PO BID [facility] Last Admin: 06/25/21 09:01 Dose: 20 mg Documented by: Vancomycin HCl 2,000 mg/ (Sodium Chloride) 540 mls @ 250 mls/hr IV Q12H [facility] Last Admin: 06/25/21 06:37 Dose: 250 mls/hr Documented by: Cefepime HCl (Cefepime/Ns 2 Gm/100 Ml) 2 gm in 100 mls @ 200 mls/hr IV Q8H [facility] Last Admin: 06/25/21 09:01 Dose: 200 mls/hr Documented by: Ceftriaxone Sodium (Rocephin/Ns 2 Gm/100 Ml) 2 gm in 100 mls @ 200 mls/hr IV Q24HR [facility]; Protocol Insulin Glargine (Insulin Glargine 100 Units/Ml) 20 units SUB-Q QAMDIAB [facility] Last Admin: 06/25/21 09:00 Dose: 20 units Documented by: Insulin Human Lispro (Insulin Lispro 100 Unit/Ml) 0 unit SUB-Q ACHS YONAS; Protocol Last Admin: 06/25/21 13:17 Dose: 10 unit Documented by: Methylprednisolone Sodium Succinate (Methylprednisolone Sod Succinate 40 Mg/1 Ml Inj) 60 mg IV Q8HR [facility] Last Admin: 06/25/21 13:17 Dose: 60 mg Documented by: Ondansetron HCl (Ondansetron 4 Mg/2 Ml Inj) 4 mg IV Q3H PRN PRN Reason: Nausea And Vomiting Senna (Sennosides 8.6 Mg Tab) 17.2 mg PO QHS [facility] Last Admin: 06/24/21 23:02 Dose: 17.2 mg Documented by: Sodium Chloride (Sodium Chloride 0.9% 10 Ml Flush Syringe) 10 ml IV BID [facility] Last Admin: 06/25/21 09:08 Dose: 10 ml Documented by: Sodium Chloride (Sodium Chloride 0.9% 10 Ml Flush Syringe) 10 ml IV PRN PRN PRN Reason: LINE FLUSH Physical Examination - Physical Exam Narrative exam: Physical Exam: Constitutional: Drowsy, no distress Head, Ears, Nose: Normocephalic, atraumatic. External ears, nose normal Eyes: Conjunctivae/corneas clear. No icterus. No ptosis. Neck: Supple, no meningeal signs Cardiovascular: S1, S2 + Respiratory: Few wheezes bilaterally, more on the left side GI: Soft, non-tender; bowel sounds normal. No peritoneal signs Musculoskeletal: No pedal edema, no cyanosis. Skin: No rash or abscess. Tattoos + Hem/Lymphatic: No palpable cervical or supraclavicular nodes. No lymphangitis Psych: Drowsy Neurological: Drowsy - Constitutional Vitals: Vital Signs Temp Pulse Resp BP Pulse Ox 97.0 F L 89 20 127/68 94 06/25/21 09:25 06/25/21 09:25 06/25/21 10:00 06/25/21 09:25 06/25/21 10:00 Temperature -Last 24 Hours Temperature 97.0 F Temperature 98.8 F Temperature 99.1 F Temperature 98.7 F Temperature 97.9 F Results - Labs CBC & Chem 7: 06/25/21 08:05 06/25/21 08:05 Labs: Abnormal lab results 06/24/21 06/24/21 06/24/21 Range/Units 14:55 15:11 15:53 WBC 24.6 H (4.5-11.0) K/mm3 RBC (3.65-5.03) M/mm3 Hgb (11.8-15.2) gm/dl Hct 45.8 H (35.5-45.6) % Seg Neuts % (Manual) 88.0 H (40.0-70.0) % Lymphocytes % (Manual) 5.0 L (13.4-35.0) % Seg Neutrophils # Man 21.6 H (1.8-7.7) K/mm3 Monocytes # (Manual) 1.0 H (0.0-0.8) K/mm3 Sodium (137-145) mmol/L Chloride (98-107) mmol/L BUN (9-20) mg/dL Creatinine (0.8-1.3) mg/dL Glucose (75-100) mg/dL POC Glucose 290 H 303 H (70-105) mg/dL Hemoglobin A1c (4-6) % 06/24/21 06/25/21 06/25/21 Range/Units 23:13 07:22 08:05 WBC 16.2 H (4.5-11.0) K/mm3 RBC 5.42 H (3.65-5.03) M/mm3 Hgb 15.6 H (11.8-15.2) gm/dl Hct 48.9 H (35.5-45.6) % Seg Neuts % (Manual) (40.0-70.0) % Lymphocytes % (Manual) (13.4-35.0) % Seg Neutrophils # Man (1.8-7.7) K/mm3 Monocytes # (Manual) (0.0-0.8) K/mm3 Sodium (137-145) mmol/L Chloride (98-107) mmol/L BUN (9-20) mg/dL Creatinine (0.8-1.3) mg/dL Glucose (75-100) mg/dL POC Glucose 382 H 413 H (70-105) mg/dL Hemoglobin A1c (4-6) % 06/25/21 06/25/21 06/25/21 Range/Units 08:05 08:05 09:22 WBC (4.5-11.0) K/mm3 RBC (3.65-5.03) M/mm3 Hgb (11.8-15.2) gm/dl Hct (35.5-45.6) % Seg Neuts % (Manual) (40.0-70.0) % Lymphocytes % (Manual) (13.4-35.0) % Seg Neutrophils # Man (1.8-7.7) K/mm3 Monocytes # (Manual) (0.0-0.8) K/mm3 Sodium 131 L (137-145) mmol/L Chloride 94.1 L (98-107) mmol/L BUN 25 H (9-20) mg/dL Creatinine 0.4 L (0.8-1.3) mg/dL Glucose 413 H (75-100) mg/dL POC Glucose 449 H (70-105) mg/dL Hemoglobin A1c 12.0 H (4-6) % 06/25/21 Range/Units 11:57 WBC (4.5-11.0) K/mm3 RBC (3.65-5.03) M/mm3 Hgb (11.8-15.2) gm/dl Hct (35.5-45.6) % Seg Neuts % (Manual) (40.0-70.0) % Lymphocytes % (Manual) (13.4-35.0) % Seg Neutrophils # Man (1.8-7.7) K/mm3 Monocytes # (Manual) (0.0-0.8) K/mm3 Sodium (137-145) mmol/L Chloride (98-107) mmol/L BUN (9-20) mg/dL Creatinine (0.8-1.3) mg/dL Glucose (75-100) mg/dL POC Glucose 395 H (70-105) mg/dL Hemoglobin A1c (4-6) % - Imaging and Cardiology Chest x-ray: report reviewed, image reviewed (L pna) Assessment and Plan Cultures: COVID-19 PCR: Negative 06/23/2021 blood culture: 3 of 4 bottles positive for GPC in pairs A/P: 55-year-old male with diabetes, hypertension, obesity, COPD admitted with shortness of breath for 2 to 3 days: #Sepsis, secondary to GPC bacteremia: ?from pneumonia v/s possibility of s ubstance abuse. Urinary tox screen was positive for amphetamines. #Left-sided pneumonia #Acute on chronic respiratory failure, COPD #Diabetes mellitus, uncontrolled: HbA1c 12.0 #Substance abuse: Urinary tox screen was positive for amphetamines Recs: Empiric ceftriaxone, vancomycin TTE ordered Repeat blood cultures ordered William Cooley MD, FACP, [facility] O: [phone] F: [phone]
[2021-06-25] MEDS: cefTRIAXone/NS 2 GM/100 ML 2 GM/100 ML BAG IV SCH (17:18)
[2021-06-25] MEDS: SENNOSIDES 8.6 MG TAB PO SCH (23:11)
[2021-06-26] MEDS: methylPREDNISolone Sod Succinate 40 MG/1 ML INJ IV SCH ×3 (06:02→22:43)
[2021-06-26] MEDS: VANCOMYCIN 2,000 MG in SODIUM CHLORIDE 0.9% 500 ML 500 ML IV SCH (06:48)
--- NOTE | 2021-06-26 08:19 | Progress Note ---
Assessment and Plan Assessment and plan: This is a 55-year-old male with COPD, insulin-dependent diabetes complicated by neuropathy and hypertension admitted for COPD exacerbation, COVID-19 PUI, pneumonia Interval history: This is a 55-year-old male with COPD, insulin-dependent diabetes complicated by neuropathy, and hypertension who presented on 06/23 with complaints of shortness of breath via EMS who stated on their arrival patient's SPO2 was in the low 80s. He has been expressing shortness of breath for the past 3 days. He was placed on 3 L nasal cannula and his oxygen saturation increased to 92%. Work-up in the emergency department included a CXR which showed pneumonia and lab work showed leukocytosis, elevated INR, pseudohyponatremia, lactic acidosis and elevated proBNP. Patient was admitted to the hospital service to the ICU with consults to CCM as a COVID-19 PUI with an acute exacerbation of COPD. 06/24: Patient has elevated blood glucose initiated on Lantus and SSI increased to high-dose. Solu-Medrol decreased. Blood culture grew gram-positive cocci in pairs and 3 out of 4 bottles. Antibiotics changed to vancomycin and cefepime from azithromycin and ceftriaxone. 06/25: Drowsy/Delirious this AM. Reoriented on bedside encounter. VSS stable. Patient had gabapentin this morning in addition having irregular sleep/wake cycles in icu. Will d/c gabapentin and ensure adequate sunlight during day as well as quiet/dark environment at night for patient. Repeat blood cultures obtained as admit blood cx grew gpc 3/4 bottles. NO fevers overnight. Continuing empiric coverage with vanc/cefepime IV. ID consultation obtained. Blood sugars also very elevated. RN just admin lantus and regular insulin this AM. Will escalate as needed for tighter glycemic control. PT assessment is also pending. 06/26: TTE pending. Continue abx. Repeat cultures have not demonstrates growth. Abx coverage with vanc/ceftriaxone at this time per ID. Blood sugars in 400's likely steroid related. Will start taper of solumedrol. Lantus escalated to 40 units, added 10 units regular with meals. Assessment and Plan Neuro: NAD -Reorientation as needed -Maintain sleep-wake cycle -Avoid delirium -As needed analgesia -As needed anxiolytics -Resume home gabapentin -UDS positive for amphetamine Cardio: h/o HTN -Blood pressure monitor per protocol -Resume home heart hypertensives as needed -Resume home aspirin Respiratory: COPD exacerbation, h/o COPD -CCM consulted, appreciate recommendations -Supplemental oxygen as needed -SPO2 monitoring -Pulmonary hygiene -Methylprednisone GI: Morbid obesity -ADA diet -Encouraged lifestyle and dietary changes upon discharge -24+210 mL -BR: Senokot -PPI : Hyponatremia, hypochloremia, metabolic acidosis -Trend BMP -Strict urine output -MIVF Endo: h/o IDDM -Hemoglobin A1c: 12 -Basal bolus regimen: lantus qhs+ insulin regular achs -SSI -Accu-Cheks AC at bedtime Heme: Leukocytosis -Monitor fever and WBC curve -Transfuse to hemoglobin of 7 -Trend CBC -SCDs to bilateral lower extremities while in bed -lovenox subq ID: Sepsis, lactic acidosis, left-sided pneumonia -Presents with lactic acid of 4.6, hypoxia, leukocytosis and pneumonia on CXR -CXR with left-sided pneumonia -COVID-19 PCR negative -Antibiotic therapy with cefepime, vancomycin -06/23 blood cultures with gram-positive cocci in pairs 3 out of 4 bottles -Follow-up repeat blood and urine culture -Send sputum culture -TTE -infectious disease consultation History Interval history: NO acute complaints. Doing well on encounter today. Hospitalist Physical - Constitutional Vitals: Temp Pulse Resp BP Pulse Ox 98.2 F 80 18 135/78 93 06/26/21 05:06 06/26/21 05:06 06/26/21 05:06 06/26/21 05:06 06/26/21 05:06 General appearance: Present: no acute distress, well-nourished, obese HEART Score - HEART Score Age: 45-65 Risk factors: > 3 risk factors or hx of atherosclerotic disease Troponin: Troponin T < 0.010 ng/mL (0.00-0.029) 06/23/21 Unknown Troponin: 1-3x normal limit - Critical Actions Critical Actions: 0-3 pts:0.9-1.7%risk of adverse cardiac event.Candidate for discharge Results - Labs CBC & Chem 7: 06/25/21 08:05 06/26/21 08:18 Labs: Laboratory Last Values WBC 16.2 K/mm3 (4.5-11.0) H 06/25/21 08:05 RBC 5.42 M/mm3 (3.65-5.03) H 06/25/21 08:05 Hgb 15.6 gm/dl (11.8-15.2) H 06/25/21 08:05 Hct 48.9 % (35.5-45.6) H 06/25/21 08:05 MCV 90 fl (84-94) 06/25/21 08:05 MCH 29 pg (28-32) 06/25/21 08:05 MCHC 32 % (32-34) 06/25/21 08:05 RDW 13.7 % (13.2-15.2) 06/25/21 08:05 Plt Count 144 K/mm3 (140-440) 06/25/21 08:05 Add Manual Diff Complete 06/24/21 15:11 Total Counted 100 06/24/21 15:11 Seg Neutrophils % Ultrasound Tech 06/24/21 15:11 Seg Neuts % (Manual) 88.0 % (40.0-70.0) H 06/24/21 15:11 Band Neutrophils % 3.0 % 06/24/21 15:11 Lymphocytes % (Manual) 5.0 % (13.4-35.0) L 06/24/21 15:11 Monocytes % (Manual) 4.0 % (0.0-7.3) 06/24/21 15:11 Nucleated RBC % Not Reportable 06/24/21 15:11 Seg Neutrophils # Man 21.6 K/mm3 (1.8-7.7) H 06/24/21 15:11 Band Neutrophils # 0.7 K/mm3 06/24/21 15:11 Lymphocytes # (Manual) 1.2 K/mm3 (1.2-5.4) 06/24/21 15:11 Abs React Lymphs (Man) 0.0 K/mm3 06/24/21 15:11 Monocytes # (Manual) 1.0 K/mm3 (0.0-0.8) H 06/24/21 15:11 Eosinophils # (Manual) 0.0 K/mm3 (0.0-0.4) 06/24/21 15:11 Basophils # (Manual) 0.0 K/mm3 (0.0-0.1) 06/24/21 15:11 Metamyelocytes # 0.0 K/mm3 06/24/21 15:11 Myelocytes # 0.0 K/mm3 06/24/21 15:11 Promyelocytes # 0.0 K/mm3 06/24/21 15:11 Blast Cells # 0.0 K/mm3 06/24/21 15:11 WBC Morphology Not Reportable 06/24/21 15:11 Hypersegmented Neuts Not Reportable 06/24/21 15:11 Hyposegmented Neuts Not Reportable 06/24/21 15:11 Hypogranular Neuts Not Reportable 06/24/21 15:11 Smudge Cells Not Reportable 06/24/21 15:11 Toxic Granulation Not Reportable 06/24/21 15:11 Toxic Vacuolation Not Reportable 06/24/21 15:11 Dohle Bodies Not Reportable 06/24/21 15:11 Pelger-Huet Anomaly Not Reportable 06/24/21 15:11 Rodney Rods Not Reportable 06/24/21 15:11 Platelet Estimate Consistent w auto 06/24/21 15:11 Clumped Platelets Not Reportable 06/24/21 15:11 Plt Clumps, EDTA Not Reportable 06/24/21 15:11 Large Platelets 1+ 06/24/21 15:11 Giant Platelets Not Reportable 06/24/21 15:11 Platelet Satelliting Not Reportable 06/24/21 15:11 Plt Morphology Comment Not Reportable 06/24/21 15:11 RBC Morphology Not Reportable 06/24/21 15:11 Dimorphic RBCs Not Reportable 06/24/21 15:11 Polychromasia Not Reportable 06/24/21 15:11 Hypochromasia Not Reportable 06/24/21 15:11 Poikilocytosis Not Reportable 06/24/21 15:11 Anisocytosis Not Reportable 06/24/21 15:11 Microcytosis Not Reportable 06/24/21 15:11 Macrocytosis Not Reportable 06/24/21 15:11 Spherocytes Not Reportable 06/24/21 15:11 Pappenheimer Bodies Not Reportable 06/24/21 15:11 Sickle Cells Not Reportable 06/24/21 15:11 Target Cells Not Reportable 06/24/21 15:11 Tear Drop Cells Not Reportable 06/24/21 15:11 Ovalocytes Not Reportable 06/24/21 15:11 Helmet Cells Not Reportable 06/24/21 15:11 [place] Bodies Not Reportable 06/24/21 15:11 [place] Rings Not Reportable 06/24/21 15:11 Etta Cells Not Reportable 06/24/21 15:11 Bite Cells Not Reportable 06/24/21 15:11 Crenated Cell Not Reportable 06/24/21 15:11 Elliptocytes Not Reportable 06/24/21 15:11 Acanthocytes (Spur) Not Reportable 06/24/21 15:11 Rouleaux Not Reportable 06/24/21 15:11 Hemoglobin C Crystals Not Reportable 06/24/21 15:11 Schistocytes Not Reportable 06/24/21 15:11 Malaria parasites Not Reportable 06/24/21 15:11 Lewis Bodies Not Reportable 06/24/21 15:11 Hem Pathologist Commnt No 06/24/21 15:11 PT 17.8 Sec. (12.2-14.9) H 06/23/21 Unknown INR 1.33 (0.87-1.13) H 06/23/21 Unknown APTT 31.4 Sec. (24.2-36.6) 06/23/21 Unknown Sodium 131 mmol/L (137-145) L 06/25/21 08:05 Potassium 4.9 mmol/L (3.6-5.0) 06/25/21 08:05 Chloride 94.1 mmol/L (98-107) L 06/25/21 08:05 Carbon Dioxide 22 mmol/L (22-30) 06/25/21 08:05 Anion Gap 20 mmol/L 06/25/21 08:05 BUN 25 mg/dL (9-20) H 06/25/21 08:05 Creatinine 0.4 mg/dL (0.8-1.3) L 06/25/21 08:05 Estimated GFR > 60 ml/min 06/25/21 08:05 BUN/Creatinine Ratio 63 % 06/25/21 08:05 Glucose 413 mg/dL (75-100) H 06/25/21 08:05 POC Glucose 403 mg/dL (70-105) H 06/25/21 21:38 Hemoglobin A1c 12.0 % (4-6) H 06/25/21 08:05 Lactic Acid 4.60 mmol/L (0.7-2.0) H* 06/23/21 Unknown Calcium 8.7 mg/dL (8.4-10.2) 06/25/21 08:05 Phosphorus 2.90 mg/dL (2.5-4.5) 06/24/21 08:17 Magnesium 2.30 mg/dL (1.7-2.3) 06/24/21 08:17 Total Bilirubin 2.60 mg/dL (0.1-1.2) H 06/23/21 Unknown AST 42 units/L (5-40) H 06/23/21 Unknown ALT 36 units/L (7-56) 06/23/21 Unknown Alkaline Phosphatase 69 units/L (35-129) 06/23/21 Unknown Troponin T < 0.010 ng/mL (0.00-0.029) 06/23/21 Unknown NT-Pro-B Natriuret Pep 2555 pg/mL (0-900) H 06/23/21 Unknown Total Protein 6.8 g/dL (6.3-8.2) 06/23/21 Unknown Albumin 2.9 g/dL (3.9-5) L 06/23/21 Unknown Albumin/Globulin Ratio 0.7 % 06/23/21 Unknown Urine Color Yellow (Yellow) 06/23/21 Unknown Urine Turbidity Clear (Clear) 06/23/21 Unknown Urine pH 5.0 (5.0-7.0) 06/23/21 Unknown Ur Specific [place] 1.023 (1.003-1.030) 06/23/21 Unknown Urine Protein 100 mg/dl mg/dL (Negative) 06/23/21 Unknown Urine Glucose (UA) >=500 mg/dL (Negative) 06/23/21 Unknown Urine Ketones Tr mg/dL (Negative) 06/23/21 Unknown Urine Blood Mod (Negative) 06/23/21 Unknown Urine Nitrite Neg (Negative) 06/23/21 Unknown Urine Bilirubin Neg (Negative) 06/23/21 Unknown Urine Urobilinogen 2.0 mg/dL (<2.0) 06/23/21 Unknown Ur Leukocyte Esterase Neg (Negative) 06/23/21 Unknown Urine WBC (Auto) 3.0 /HPF (0.0-6.0) 06/23/21 Unknown Urine RBC (Auto) 1.0 /HPF (0.0-6.0) 06/23/21 Unknown U Epithel Cells (Auto) 1.0 /HPF (0-13.0) 06/23/21 Unknown Vancomycin Trough 7.4 ug/mL (5.0-20.0) 06/26/21 06:01 Urine Opiates Screen Presumptive negative 06/23/21 Unknown Urine Methadone Screen Presumptive negative 06/23/21 Unknown Ur Barbiturates Screen Presumptive negative 06/23/21 Unknown Ur Phencyclidine Scrn Presumptive negative 06/23/21 Unknown Ur Amphetamines Screen Presumptive positive 06/23/21 Unknown U Benzodiazepines Scrn Presumptive negative 06/23/21 Unknown Urine Cocaine Screen Presumptive negative 06/23/21 Unknown U Marijuana (THC) Screen Presumptive negative 06/23/21 Unknown Drugs of Abuse Note Disclamer 06/23/21 Unknown Coronavirus (PCR) Negative (Negative) 06/24/21 Unknown Microbiology: Microbiology 06/25/21 16:06 Peripheral/Venous Blood Culture - Preliminary Culture in Progress 06/25/21 16:15 Peripheral/Venous Blood Culture - Preliminary Culture in Progress 06/23/21 Unknown Urine,Clean Catch Urine Culture - Final NO GROWTH AFTER 48 HOURS Ayala/IV: Voiding Method Urinal Active Medications - Current Medications Current Medications: Generic Name Dose Route Start Last Admin Trade Name Freq PRN Reason Stop Dose Admin Acetaminophen 650 mg 06/24/21 07:34 Acetaminophen 325 Mg Tab PO Q4H PRN Pain MILD(1-3)/Fever >100.5/DAS Albuterol 2.5 mg 06/24/21 12:05 Albuterol 2.5 Mg/3 Ml Nebu IH Q4HRT PRN Shortness Of Breath Alprazolam 0.125 mg 06/24/21 05:04 06/24/21 00:20 Alprazolam 0.25 Mg Tab PO 0.125 mg Q8H PRN Administration Anxiety Aspirin 81 mg 06/24/21 10:00 06/25/21 09:01 Aspirin Ec 81 Mg Tab PO 81 mg DAILY YONAS Administration Famotidine 20 mg 06/24/21 10:00 06/25/21 22:22 Famotidine 20 Mg Tab PO 20 mg BID YONAS Administration Ceftriaxone Sodium 2 gm in 100 mls @ 200 mls/hr 06/25/21 14:00 06/25/21 17:18 Rocephin/Ns 2 Gm/100 Ml IV 200 mls/hr Q24HR [facility] Administration Protocol Vancomycin HCl 1,750 mg/ 535 mls @ 333.333 mls/hr 06/26/21 14:00 Sodium Chloride IV Q8HR [facility] Insulin Glargine 40 units 06/26/21 08:13 Insulin Glargine 100 Units/Ml SUB-Q QAMDIAB [facility] Insulin Human Lispro 0 unit 06/24/21 07:30 06/25/21 22:20 Insulin Lispro 100 Unit/Ml SUB-Q 8 unit ACHS [facility] Administration Protocol Insulin Human Regular 10 units 06/26/21 11:30 Insulin Regular, Human 100 Units/1 Ml SUB-Q ACHS [facility] Methylprednisolone Sodium Succinate 40 mg 06/26/21 10:00 Methylprednisolone Sod Succinate 40 Mg/1 Ml Inj IV Q12HR [facility] Ondansetron HCl 4 mg 06/24/21 07:34 Ondansetron 4 Mg/2 Ml Inj IV Q3H PRN Nausea And Vomiting Senna 17.2 mg 06/24/21 22:00 06/25/21 23:11 Sennosides 8.6 Mg Tab PO 17.2 mg QHS [facility]ANS Administration Sodium Chloride 10 ml 06/24/21 10:00 06/25/21 22:21 Sodium Chloride 0.9% 10 Ml Flush Syringe IV 10 ml BID YONAS Administration Sodium Chloride 10 ml 06/24/21 07:34 Sodium Chloride 0.9% 10 Ml Flush Syringe IV PRN PRN LINE FLUSH
[2021-06-26] MEDS: INSULIN LISPRO 100 UNIT/ML SUB-Q SCH ×4 (08:32→22:45)
[2021-06-26 10:15] LABS: Blood Urea Nitrogen 27 mg/dL (9-20); Calcium 8.5 mg/dL (8.4-10.2); Hemolysis Index 35
[2021-06-26 10:18] LABS: BUN/Creatinine Ratio 68
[2021-06-26] MEDS: cefTRIAXone/NS 2 GM/100 ML 2 GM/100 ML BAG IV SCH (11:14)
[2021-06-26] MEDS: ASPIRIN EC 81 MG TAB PO SCH (11:14)
[2021-06-26] MEDS: FAMOTIDINE 20 MG TAB PO SCH ×2 (11:14→22:43)
[2021-06-26] MEDS: INSULIN GLARGINE 100 UNITS/ML SUB-Q SCH (11:17)
--- NOTE | 2021-06-26 11:31 | Progress Note ---
Assessment and Plan Cultures: COVID-19 PCR: Negative 06/23/2021 blood culture: 3 of 4 bottles positive for GPC in pairs 06/25/2021 blood culture: In process A/P: 55-year-old male with diabetes, hypertension, obesity, COPD admitted with shortness of breath for 2 to 3 days: #Sepsis, secondary to GPC bacteremia: ?from pneumonia v/s possibility of substance abuse. Urinary tox screen was positive for amphetamines, patient denies IVDU, states he smokes meth. TTE without obvious vegetations / endocarditis. #Left-sided pneumonia #Acute on chronic respiratory failure, COPD #Diabetes mellitus, uncontrolled: HbA1c 12.0 #Substance abuse: Urinary tox screen was positive for amphetamines Recs: continue IV ceftriaxone, vancomycin f/u blood cultures for ID and sensitivities William Cooley MD, FACP, [facility] O: [phone] F: [phone] Subjective Date of service: 06/26/21 Interval history: Patient more awake and alert today. Reports cough and shortness of breath. Did ambulate with PT. Reports pleuritic chest pain. Objective - Exam Narrative Exam: Physical Exam: Constitutional: awake, alert Head, Ears, Nose: Normocephalic, atraumatic. External ears, nose normal Eyes: Conjunctivae/corneas clear. No icterus. No ptosis. Neck: Supple, no meningeal signs Cardiovascular: S1, S2 + Respiratory: Few wheezes bilaterally, more on the left side GI: Soft, non-tender; bowel sounds normal. No peritoneal signs Musculoskeletal: No pedal edema, no cyanosis. Skin: No rash or abscess. Tattoos + Hem/Lymphatic: No palpable cervical or supraclavicular nodes. No lymphangitis Psych: no agitation Neurological: awake, alert, answering questions - Constitutional Vitals: Vital Signs Temp Pulse Resp BP Pulse Ox 98.2 F 80 18 135/78 93 06/26/21 05:06 06/26/21 05:06 06/26/21 05:06 06/26/21 05:06 06/26/21 05:06 Temperature -Last 24 Hours Temperature 98.2 F Temperature 99.3 F Temperature 98.4 F Temperature 98.0 F - Labs CBC & Chem 7: 06/25/21 08:05 06/26/21 08:18 Labs: Abnormal lab results 06/25/21 06/25/21 06/25/21 Range/Units 11:57 16:22 21:38 Sodium (137-145) mmol/L Chloride (98-107) mmol/L Carbon Dioxide (22-30) mmol/L BUN (9-20) mg/dL Creatinine (0.8-1.3) mg/dL Glucose (75-100) mg/dL POC Glucose 395 H 318 H 403 H (70-105) mg/dL 06/26/21 Range/Units 08:18 Sodium 133 L (137-145) mmol/L Chloride 96.9 L (98-107) mmol/L Carbon Dioxide 20 L (22-30) mmol/L BUN 27 H (9-20) mg/dL Creatinine 0.4 L (0.8-1.3) mg/dL Glucose 357 H (75-100) mg/dL POC Glucose (70-105) mg/dL
[2021-06-26] MEDS: INSULIN REGULAR, HUMAN 100 UNITS/1 ML SUB-Q SCH ×3 (12:54→22:44)
[2021-06-26] MEDS ORDERED: VANCOMYCIN 1,750 MG in SODIUM CHLORIDE 0.9% 500 ML 500 ML IV SCH (14:00)
[2021-06-26] MEDS: ALPRAZolam 0.25 MG TAB PO PRN ×2 (15:22→22:47)
--- NOTE | 2021-06-26 16:11 | Progress Note ---
Assessment and Plan 55 y/o male with acute exacerbation of COPD 06/26/21: Agree with tapering steroids. Suggest even starting PO prednisone tomorrow and taper rapidly. IB abx therapy ID. Smoking cessation. Will see as needed over the weekend. 06/25/21: Continue abx. Continue steroids. Insulin coverage. 1. Agree with abx therapy 2. Follow up COVID testing 3. MOnitor fluid balance and maintain daily net negative state 4. Decreased steroids to 60q8, this should help with blood sugar 5. Long acting insulin therapy and SSI coverage 6. Transfer to floor ([facility]) Subjective Date of service: 06/26/21 Interval history: Positive blood cultures but repeat is negative. Down to 3 liters with good sats. BS still elevated. Objective Vital Signs - 12hr 06/26/21 06/26/21 06/26/21 05:06 10:00 13:55 Temperature 98.2 F 98.1 F Pulse Rate 80 75 Respiratory 18 20 22 Rate Blood Pressure 135/78 133/68 O2 Sat by Pulse 93 95 93 Oximetry CBC and BMP: 06/25/21 08:05 06/26/21 08:18 ABG, PT/INR, D-dimer: PT/INR, D-dimer PT 17.8 Sec. (12.2-14.9) H 06/23/21 Unknown INR 1.33 (0.87-1.13) H 06/23/21 Unknown Abnormal lab findings: Abnormal Labs 06/23/21 06/23/21 06/23/21 15:28 23:49 Unknown WBC 25.3 H RBC 5.47 H Hgb 16.2 H Hct 49.2 H Seg Neuts % (Manual) 82 H Lymphocytes % (Manual) 5 L Monocytes % (Manual) 8 H Seg Neutrophils # Man 20.7 H Monocytes # (Manual) 2.0 H PT INR Sodium Chloride Carbon Dioxide BUN Creatinine Glucose POC Glucose 312 H Hemoglobin A1c Lactic Acid 4.60 H* Total Bilirubin AST NT-Pro-B Natriuret Pep Albumin 06/23/21 06/23/21 06/23/21 Unknown Unknown Unknown WBC RBC Hgb Hct Seg Neuts % (Manual) Lymphocytes % (Manual) Monocytes % (Manual) Seg Neutrophils # Man Monocytes # (Manual) PT 17.8 H INR 1.33 H Sodium 128 L Chloride 90.7 L Carbon Dioxide 21 L BUN 24 H Creatinine 0.3 L Glucose 370 H POC Glucose Hemoglobin A1c Lactic Acid 4.60 H* Total Bilirubin 2.60 H AST 42 H NT-Pro-B Natriuret Pep 2555 H Albumin 2.9 L 06/24/21 06/24/21 06/24/21 06:23 08:17 09:37 WBC RBC Hgb Hct Seg Neuts % (Manual) Lymphocytes % (Manual) Monocytes % (Manual) Seg Neutrophils # Man Monocytes # (Manual) PT INR Sodium 131 L Chloride 92.6 L Carbon Dioxide 20 L BUN 21 H Creatinine 0.5 L D Glucose 330 H POC Glucose 355 H 290 H Hemoglobin A1c Lactic Acid Total Bilirubin AST NT-Pro-B Natriuret Pep Albumin 06/24/21 06/24/21 06/24/21 11:26 14:55 15:11 WBC 24.6 H RBC Hgb Hct 45.8 H Seg Neuts % (Manual) 88.0 H Lymphocytes % (Manual) 5.0 L Monocytes % (Manual) Seg Neutrophils # Man 21.6 H Monocytes # (Manual) 1.0 H PT INR Sodium Chloride Carbon Dioxide BUN Creatinine Glucose POC Glucose 280 H 290 H Hemoglobin A1c Lactic Acid Total Bilirubin AST NT-Pro-B Natriuret Pep Albumin 06/24/21 06/24/21 06/25/21 15:53 23:13 07:22 WBC RBC Hgb Hct Seg Neuts % (Manual) Lymphocytes % (Manual) Monocytes % (Manual) Seg Neutrophils # Man Monocytes # (Manual) PT INR Sodium Chloride Carbon Dioxide BUN Creatinine Glucose POC Glucose 303 H 382 H 413 H Hemoglobin A1c Lactic Acid Total Bilirubin AST NT-Pro-B Natriuret Pep Albumin 06/25/21 06/25/21 06/25/21 08:05 08:05 08:05 WBC 16.2 H RBC 5.42 H Hgb 15.6 H Hct 48.9 H Seg Neuts % (Manual) Lymphocytes % (Manual) Monocytes % (Manual) Seg Neutrophils # Man Monocytes # (Manual) PT INR Sodium 131 L Chloride 94.1 L Carbon Dioxide BUN 25 H Creatinine 0.4 L Glucose 413 H POC Glucose Hemoglobin A1c 12.0 H Lactic Acid Total Bilirubin AST NT-Pro-B Natriuret Pep Albumin 06/25/21 06/25/21 06/25/21 09:22 11:57 16:22 WBC RBC Hgb Hct Seg Neuts % (Manual) Lymphocytes % (Manual) Monocytes % (Manual) Seg Neutrophils # Man Monocytes # (Manual) PT INR Sodium Chloride Carbon Dioxide BUN Creatinine Glucose POC Glucose 449 H 395 H 318 H Hemoglobin A1c Lactic Acid Total Bilirubin AST NT-Pro-B Natriuret Pep Albumin 06/25/21 06/26/21 06/26/21 21:38 08:18 11:56 WBC RBC Hgb Hct Seg Neuts % (Manual) Lymphocytes % (Manual) Monocytes % (Manual) Seg Neutrophils # Man Monocytes # (Manual) PT INR Sodium 133 L Chloride 96.9 L Carbon Dioxide 20 L BUN 27 H Creatinine 0.4 L Glucose 357 H POC Glucose 403 H 419 H Hemoglobin A1c Lactic Acid Total Bilirubin AST NT-Pro-B Natriuret Pep Albumin
[2021-06-26] MEDS: ACETAMINOPHEN 325 MG TAB PO PRN (22:43)
[2021-06-26] MEDS: SENNOSIDES 8.6 MG TAB PO SCH (22:48)
[2021-06-27] MEDS: ACETAMINOPHEN 325 MG TAB PO PRN (03:38)
[2021-06-27 06:51] LABS: Blood Urea Nitrogen 24 mg/dL (9-20); Calcium 8.6 mg/dL (8.4-10.2); Hemolysis Index 3
[2021-06-27 07:05] LABS: BUN/Creatinine Ratio 60
--- NOTE | 2021-06-27 07:38 | Progress Note ---
Assessment and Plan Assessment and plan: This is a 55-year-old male with COPD, insulin-dependent diabetes complicated by neuropathy and hypertension admitted for COPD exacerbation, COVID-19 PUI, pneumonia Interval history: This is a 55-year-old male with COPD, insulin-dependent diabetes complicated by neuropathy, and hypertension who presented on 06/23 with complaints of shortness of breath via EMS who stated on their arrival patient's SPO2 was in the low 80s. He has been expressing shortness of breath for the past 3 days. He was placed on 3 L nasal cannula and his oxygen saturation increased to 92%. Work-up in the emergency department included a CXR which showed pneumonia and lab work showed leukocytosis, elevated INR, pseudohyponatremia, lactic acidosis and elevated proBNP. Patient was admitted to the hospital service to the ICU with consults to [facility] as a COVID-19 PUI with an acute exacerbation of COPD. 06/24: Patient has elevated blood glucose initiated on Lantus and SSI increased to high-dose. Solu-Medrol decreased. Blood culture grew gram-positive cocci in pairs and 3 out of 4 bottles. Antibiotics changed to vancomycin and cefepime from azithromycin and ceftriaxone. 06/25: Drowsy/Delirious this AM. Reoriented on bedside encounter. VSS stable. Patient had gabapentin this morning in addition having irregular sleep/wake cycles in icu. Will d/c gabapentin and ensure adequate sunlight during day as well as quiet/dark environment at night for patient. Repeat blood cultures obtained as admit blood cx grew gpc 3/4 bottles. NO fevers overnight. Continuing empiric coverage with vanc/cefepime IV. ID consultation obtained. Blood sugars also very elevated. RN just admin lantus and regular insulin this AM. Will escalate as needed for tighter glycemic control. PT assessment is also pending. 06/26: TTE negative for vegetations. Continue abx. Repeat cultures have not demonstrates growth. Abx coverage with ceftriaxone at this time per ID. Blood sugars in 400's likely steroid related. Will start taper of solumedrol. Lantus escalated to 40 units, added 10 units regular with meals. 06/27: Ambulatory O2 test. Blood sugars improved. Will likely need further optimization. CM order for c PT. Assessment and Plan Neuro: NAD -Reorientation as needed -Maintain sleep-wake cycle -Avoid delirium -As needed analgesia -As needed anxiolytics -Resume home gabapentin -UDS positive for amphetamine Cardio: h/o HTN -Blood pressure monitor per protocol -Resume home heart hypertensives as needed -Resume home aspirin Respiratory: COPD exacerbation, h/o COPD -CCM consulted, appreciate recommendations -Supplemental oxygen as needed -SPO2 monitoring -Pulmonary hygiene -Methylprednisone -ambulatory O2 test pending to assess for home O2 need. GI: Morbid obesity -ADA diet -Encouraged lifestyle and dietary changes upon discharge -24+210 mL -BR: Senokot -PPI : Hyponatremia, hypochloremia, metabolic acidosis -Trend BMP -Strict urine output -MIVF Endo: h/o IDDM -Hemoglobin A1c: 12 -Basal bolus regimen: lantus qhs+ insulin regular achs -SSI -Accu-Cheks AC at bedtime Heme: Leukocytosis -Monitor fever and WBC curve -Transfuse to hemoglobin of 7 -Trend CBC -SCDs to bilateral lower extremities while in bed -lovenox subq ID: Sepsis, lactic acidosis, left-sided pneumonia -Presents with lactic acid of 4.6, hypoxia, leukocytosis and pneumonia on CXR -CXR with left-sided pneumonia -COVID-19 PCR negative -Antibiotic therapy with ceftriaxone, dc vancomycin -06/23 blood cultures with gram-positive cocci in pairs 3 out of 4 bottles --> S. pneumonia -Follow-up repeat blood and urine culture -Send sputum culture -TTE - negative for vegetations/endocarditis -infectious disease consultation History Interval history: NO acute complaints. Doing well on encounter today. Hospitalist Physical - Physical exam Narrative exam: General appearance: Present: no acute distress, well-nourished, obese - EENT Eyes: Present: PERRL, EOM intact ENT: clear oral mucosa, dentition normal - Neck Neck: Present: normal ROM - Respiratory Respiratory effort: normal Respiratory: bilateral: diminished - Cardiovascular Rhythm: regular Heart Sounds: Present: S1 & S2. Absent: systolic murmur, diastolic murmur - Extremities Extremities: no ischemia, pulses intact, pulses symmetrical, No edema, normal temperature, normal color Peripheral Pulses: within normal limits - Abdominal General gastrointestinal: soft, non-tender, non-distended, normal bowel sounds - Integumentary Integumentary: Present: warm, dry - Psychiatric Psychiatric: cooperative - Neurologic Neurologic: CNII-XII intact, no focal deficits, moves all extremities - Allied Health Allied health notes reviewed: nursing, RT, social work - Constitutional Vitals: Temp Pulse Resp BP Pulse Ox 98.3 F 80 18 143/81 95 06/27/21 04:29 06/27/21 04:29 06/27/21 04:29 06/27/21 04:29 06/27/21 04:29 General appearance: Present: no acute distress, well-nourished, obese HEART Score - HEART Score Age: 45-65 Risk factors: > 3 risk factors or hx of atherosclerotic disease Troponin: Troponin T < 0.010 ng/mL (0.00-0.029) 06/23/21 Unknown Troponin: 1-3x normal limit - Critical Actions Critical Actions: 0-3 pts:0.9-1.7%risk of adverse cardiac event.Candidate for discharge Results - Labs CBC & Chem 7: 06/25/21 08:05 06/27/21 05:20 Labs: Laboratory Last Values WBC 16.2 K/mm3 (4.5-11.0) H 06/25/21 08:05 RBC 5.42 M/mm3 (3.65-5.03) H 06/25/21 08:05 Hgb 15.6 gm/dl (11.8-15.2) H 06/25/21 08:05 Hct 48.9 % (35.5-45.6) H 06/25/21 08:05 MCV 90 fl (84-94) 06/25/21 08:05 MCH 29 pg (28-32) 06/25/21 08:05 MCHC 32 % (32-34) 06/25/21 08:05 RDW 13.7 % (13.2-15.2) 06/25/21 08:05 Plt Count 144 K/mm3 (140-440) 06/25/21 08:05 Add Manual Diff Complete 06/24/21 15:11 Total Counted 100 06/24/21 15:11 Seg Neutrophils % Speedboat Driver 06/24/21 15:11 Seg Neuts % (Manual) 88.0 % (40.0-70.0) H 06/24/21 15:11 Band Neutrophils % 3.0 % 06/24/21 15:11 Lymphocytes % (Manual) 5.0 % (13.4-35.0) L 06/24/21 15:11 Monocytes % (Manual) 4.0 % (0.0-7.3) 06/24/21 15:11 Nucleated RBC % Not Reportable 06/24/21 15:11 Seg Neutrophils # Man 21.6 K/mm3 (1.8-7.7) H 06/24/21 15:11 Band Neutrophils # 0.7 K/mm3 06/24/21 15:11 Lymphocytes # (Manual) 1.2 K/mm3 (1.2-5.4) 06/24/21 15:11 Abs React Lymphs (Man) 0.0 K/mm3 06/24/21 15:11 Monocytes # (Manual) 1.0 K/mm3 (0.0-0.8) H 06/24/21 15:11 Eosinophils # (Manual) 0.0 K/mm3 (0.0-0.4) 06/24/21 15:11 Basophils # (Manual) 0.0 K/mm3 (0.0-0.1) 06/24/21 15:11 Metamyelocytes # 0.0 K/mm3 06/24/21 15:11 Myelocytes # 0.0 K/mm3 06/24/21 15:11 Promyelocytes # 0.0 K/mm3 06/24/21 15:11 Blast Cells # 0.0 K/mm3 06/24/21 15:11 WBC Morphology Not Reportable 06/24/21 15:11 Hypersegmented Neuts Not Reportable 06/24/21 15:11 Hyposegmented Neuts Not Reportable 06/24/21 15:11 Hypogranular Neuts Not Reportable 06/24/21 15:11 Smudge Cells Not Reportable 06/24/21 15:11 Toxic Granulation Not Reportable 06/24/21 15:11 Toxic Vacuolation Not Reportable 06/24/21 15:11 Dohle Bodies Not Reportable 06/24/21 15:11 Pelger-Huet Anomaly Not Reportable 06/24/21 15:11 Rodney Rods Not Reportable 06/24/21 15:11 Platelet Estimate Consistent w auto 06/24/21 15:11 Clumped Platelets Not Reportable 06/24/21 15:11 Plt Clumps, EDTA Not Reportable 06/24/21 15:11 Large Platelets 1+ 06/24/21 15:11 Giant Platelets Not Reportable 06/24/21 15:11 Platelet Satelliting Not Reportable 06/24/21 15:11 Plt Morphology Comment Not Reportable 06/24/21 15:11 RBC Morphology Not Reportable 06/24/21 15:11 Dimorphic RBCs Not Reportable 06/24/21 15:11 Polychromasia Not Reportable 06/24/21 15:11 Hypochromasia Not Reportable 06/24/21 15:11 Poikilocytosis Not Reportable 06/24/21 15:11 Anisocytosis Not Reportable 06/24/21 15:11 Microcytosis Not Reportable 06/24/21 15:11 Macrocytosis Not Reportable 06/24/21 15:11 Spherocytes Not Reportable 06/24/21 15:11 Pappenheimer Bodies Not Reportable 06/24/21 15:11 Sickle Cells Not Reportable 06/24/21 15:11 Target Cells Not Reportable 06/24/21 15:11 Tear Drop Cells Not Reportable 06/24/21 15:11 Ovalocytes Not Reportable 06/24/21 15:11 Helmet Cells Not Reportable 06/24/21 15:11 Sarkar-Carmi Bodies Not Reportable 06/24/21 15:11 [place] Rings Not Reportable 06/24/21 15:11 Smithers Cells Not Reportable 06/24/21 15:11 Bite Cells Not Reportable 06/24/21 15:11 Crenated Cell Not Reportable 06/24/21 15:11 Elliptocytes Not Reportable 06/24/21 15:11 Acanthocytes (Spur) Not Reportable 06/24/21 15:11 Rouleaux Not Reportable 06/24/21 15:11 Hemoglobin C Crystals Not Reportable 06/24/21 15:11 Schistocytes Not Reportable 06/24/21 15:11 Malaria parasites Not Reportable 06/24/21 15:11 Lewis Bodies Not Reportable 06/24/21 15:11 Hem Pathologist Commnt No 06/24/21 15:11 PT 17.8 Sec. (12.2-14.9) H 06/23/21 Unknown INR 1.33 (0.87-1.13) H 06/23/21 Unknown APTT 31.4 Sec. (24.2-36.6) 06/23/21 Unknown Sodium 136 mmol/L (137-145) L 06/27/21 05:20 Potassium 4.0 mmol/L (3.6-5.0) 06/27/21 05:20 Chloride 98.7 mmol/L (98-107) 06/27/21 05:20 Carbon Dioxide 22 mmol/L (22-30) 06/27/21 05:20 Anion Gap 19 mmol/L 06/27/21 05:20 BUN 24 mg/dL (9-20) H 06/27/21 05:20 Creatinine 0.4 mg/dL (0.8-1.3) L 06/27/21 05:20 Estimated GFR > 60 ml/min 06/27/21 05:20 BUN/Creatinine Ratio 60 % 06/27/21 05:20 Glucose 298 mg/dL (75-100) H 06/27/21 05:20 POC Glucose 269 mg/dL (70-105) H 06/26/21 21:36 Hemoglobin A1c 12.0 % (4-6) H 06/25/21 08:05 Lactic Acid 4.60 mmol/L (0.7-2.0) H* 06/23/21 Unknown Calcium 8.6 mg/dL (8.4-10.2) 06/27/21 05:20 Phosphorus 2.90 mg/dL (2.5-4.5) 06/24/21 08:17 Magnesium 2.30 mg/dL (1.7-2.3) 06/24/21 08:17 Total Bilirubin 2.60 mg/dL (0.1-1.2) H 06/23/21 Unknown AST 42 units/L (5-40) H 06/23/21 Unknown ALT 36 units/L (7-56) 06/23/21 Unknown Alkaline Phosphatase 69 units/L (35-129) 06/23/21 Unknown Troponin T < 0.010 ng/mL (0.00-0.029) 06/23/21 Unknown NT-Pro-B Natriuret Pep 2555 pg/mL (0-900) H 06/23/21 Unknown Total Protein 6.8 g/dL (6.3-8.2) 06/23/21 Unknown Albumin 2.9 g/dL (3.9-5) L 06/23/21 Unknown Albumin/Globulin Ratio 0.7 % 06/23/21 Unknown Urine Color Yellow (Yellow) 06/23/21 Unknown Urine Turbidity Clear (Clear) 06/23/21 Unknown Urine pH 5.0 (5.0-7.0) 06/23/21 Unknown Ur Specific [place] 1.023 (1.003-1.030) 06/23/21 Unknown Urine Protein 100 mg/dl mg/dL (Negative) 06/23/21 Unknown Urine Glucose (UA) >=500 mg/dL (Negative) 06/23/21 Unknown Urine Ketones Tr mg/dL (Negative) 06/23/21 Unknown Urine Blood Mod (Negative) 06/23/21 Unknown Urine Nitrite Neg (Negative) 06/23/21 Unknown Urine Bilirubin Neg (Negative) 06/23/21 Unknown Urine Urobilinogen 2.0 mg/dL (<2.0) 06/23/21 Unknown Ur Leukocyte Esterase Neg (Negative) 06/23/21 Unknown Urine WBC (Auto) 3.0 /HPF (0.0-6.0) 06/23/21 Unknown Urine RBC (Auto) 1.0 /HPF (0.0-6.0) 06/23/21 Unknown U Epithel Cells (Auto) 1.0 /HPF (0-13.0) 06/23/21 Unknown Vancomycin Trough 7.4 ug/mL (5.0-20.0) 06/26/21 06:01 Urine Opiates Screen Presumptive negative 06/23/21 Unknown Urine Methadone Screen Presumptive negative 06/23/21 Unknown Ur Barbiturates Screen Presumptive negative 06/23/21 Unknown Ur Phencyclidine Scrn Presumptive negative 06/23/21 Unknown Ur Amphetamines Screen Presumptive positive 06/23/21 Unknown U Benzodiazepines Scrn Presumptive negative 06/23/21 Unknown Urine Cocaine Screen Presumptive negative 06/23/21 Unknown U Marijuana (THC) Screen Presumptive negative 06/23/21 Unknown Drugs of Abuse Note Disclamer 06/23/21 Unknown Coronavirus (PCR) Negative (Negative) 06/24/21 Unknown Microbiology: Microbiology 06/25/21 16:06 Peripheral/Venous Blood Culture - Preliminary NO GROWTH AFTER 24 HOURS 06/25/21 16:15 Peripheral/Venous Blood Culture - Preliminary NO GROWTH AFTER 24 HOURS 06/23/21 13:15 Peripheral/Venous Blood Culture - Preliminary Streptococcus Pneumoniae 06/26/21 07:05 Sputum - Expectorated Sputum Sputum Culture - Final 06/23/21 13:15 Peripheral/Venous Blood Culture - Preliminary Streptococcus Pneumoniae Ayala/IV: Voiding Method Urinal Active Medications - Current Medications Current Medications: Generic Name Dose Route Start Last Admin Trade Name Freq PRN Reason Stop Dose Admin Acetaminophen 650 mg 06/24/21 07:34 06/27/21 03:38 Acetaminophen 325 Mg Tab PO 650 mg Q4H PRN Administration Pain MILD(1-3)/Fever >100.5/DAS Albuterol 2.5 mg 06/24/21 12:05 Albuterol 2.5 Mg/3 Ml Nebu IH Q4HRT PRN Shortness Of Breath Alprazolam 0.125 mg 06/24/21 05:04 06/26/21 22:47 Alprazolam 0.25 Mg Tab PO 0.125 mg Q8H PRN Administration Anxiety Aspirin 81 mg 06/24/21 10:00 06/26/21 11:14 Aspirin Ec 81 Mg Tab PO 81 mg DAILY YONAS Administration Famotidine 20 mg 06/24/21 10:00 06/26/21 22:43 Famotidine 20 Mg Tab PO 20 mg BID YONAS Administration Ceftriaxone Sodium 2 gm in 100 mls @ 200 mls/hr 06/25/21 14:00 06/26/21 11:14 Rocephin/Ns 2 Gm/100 Ml IV 200 mls/hr Q24HR YONAS Administration Protocol Insulin Glargine 40 units 06/26/21 09:00 06/26/21 11:17 Insulin Glargine 100 Units/Ml SUB-Q 40 units QAMDIAB YONAS Administration Insulin Human Lispro 0 unit 06/24/21 07:30 06/26/21 22:45 Insulin Lispro 100 Unit/Ml SUB-Q 6 unit ACHS YONAS Administration Protocol Insulin Human Regular 10 units 06/26/21 11:30 06/26/21 22:44 Insulin Regular, Human 100 Units/1 Ml SUB-Q 10 units ACHS YONAS Administration Methylprednisolone Sodium Succinate 40 mg 06/26/21 10:00 06/26/21 22:43 Methylprednisolone Sod Succinate 40 Mg/1 Ml Inj IV 40 mg Q12HR YONAS Administration Ondansetron HCl 4 mg 06/24/21 07:34 Ondansetron 4 Mg/2 Ml Inj IV Q3H PRN Nausea And Vomiting Senna 17.2 mg 06/24/21 22:00 06/26/21 22:48 Sennosides 8.6 Mg Tab PO 17.2 mg QHS YONAS Administration Sodium Chloride 10 ml 06/24/21 10:00 06/26/21 22:49 Sodium Chloride 0.9% 10 Ml Flush Syringe IV 10 ml BID YONAS Administration Sodium Chloride 10 ml 06/24/21 07:34 Sodium Chloride 0.9% 10 Ml Flush Syringe IV PRN PRN LINE FLUSH
[2021-06-27] MEDS: INSULIN LISPRO 100 UNIT/ML SUB-Q SCH ×4 (08:16→22:27)
[2021-06-27] MEDS: INSULIN GLARGINE 100 UNITS/ML SUB-Q SCH ×2 (08:17→22:26)
[2021-06-27] MEDS: INSULIN REGULAR, HUMAN 100 UNITS/1 ML SUB-Q SCH ×4 (08:17→22:28)
[2021-06-27] MEDS: ASPIRIN EC 81 MG TAB PO SCH (09:50)
[2021-06-27] MEDS: methylPREDNISolone Sod Succinate 40 MG/1 ML INJ IV SCH ×2 (09:51→22:27)
[2021-06-27] MEDS: cefTRIAXone/NS 2 GM/100 ML 2 GM/100 ML BAG IV SCH (09:51)
[2021-06-27] MEDS: FAMOTIDINE 20 MG TAB PO SCH ×2 (09:51→22:27)
[2021-06-27] MEDS: SENNOSIDES 8.6 MG TAB PO SCH (22:26)
[2021-06-28] MEDS: ACETAMINOPHEN 325 MG TAB PO PRN (00:59)
[2021-06-28 06:35] LABS: Blood Urea Nitrogen 15 mg/dL (9-20); Calcium 8.4 mg/dL (8.4-10.2); Hemolysis Index 12
[2021-06-28 07:17] LABS: BUN/Creatinine Ratio 50
[2021-06-28] MEDS: INSULIN LISPRO 100 UNIT/ML SUB-Q SCH ×4 (09:50→22:30)
[2021-06-28] MEDS: FAMOTIDINE 20 MG TAB PO SCH ×2 (09:51→22:31)
[2021-06-28] MEDS: ASPIRIN EC 81 MG TAB PO SCH (09:51)
[2021-06-28] MEDS: methylPREDNISolone Sod Succinate 40 MG/1 ML INJ IV SCH (09:51)
[2021-06-28] MEDS: INSULIN REGULAR, HUMAN 100 UNITS/1 ML SUB-Q SCH ×4 (09:52→22:32)
[2021-06-28] MEDS: cefTRIAXone/NS 2 GM/100 ML 2 GM/100 ML BAG IV SCH (09:54)
--- NOTE | 2021-06-28 14:04 | Progress Note ---
Assessment and Plan Assessment and plan: This is a 55-year-old male with COPD, insulin-dependent diabetes complicated by neuropathy and hypertension admitted for COPD exacerbation, COVID-19 PUI, pneumonia Interval history: This is a 55-year-old male with COPD, insulin-dependent diabetes complicated by neuropathy, and hypertension who presented on 06/23 with complaints of shortness of breath via EMS who stated on their arrival patient's SPO2 was in the low 80s. He has been expressing shortness of breath for the past 3 days. He was placed on 3 L nasal cannula and his oxygen saturation increased to 92%. Work-up in the emergency department included a CXR which showed pneumonia and lab work showed leukocytosis, elevated INR, pseudohyponatremia, lactic acidosis and elevated proBNP. Patient was admitted to the hospital service to the ICU with consults to CCM as a COVID-19 PUI with an acute exacerbation of COPD. 06/24: Patient has elevated blood glucose initiated on Lantus and SSI increased to high-dose. Solu-Medrol decreased. Blood culture grew gram-positive cocci in pairs and 3 out of 4 bottles. Antibiotics changed to vancomycin and cefepime from azithromycin and ceftriaxone. 06/25: Drowsy/Delirious this AM. Reoriented on bedside encounter. VSS stable. Patient had gabapentin this morning in addition having irregular sleep/wake cycles in icu. Will d/c gabapentin and ensure adequate sunlight during day as well as quiet/dark environment at night for patient. Repeat blood cultures obtained as admit blood cx grew gpc 3/4 bottles. NO fevers overnight. Continuing empiric coverage with vanc/cefepime IV. ID consultation obtained. Blood sugars also very elevated. RN just admin lantus and regular insulin this AM. Will escalate as needed for tighter glycemic control. PT assessment is also pending. 06/26: TTE negative for vegetations. Continue abx. Repeat cultures have not demonstrates growth. Abx coverage with ceftriaxone at this time per ID. Blood sugars in 400's likely steroid related. Will start taper of solumedrol. Lantus escalated to 40 units, added 10 units regular with meals. 06/27: Ambulatory O2 test. Blood sugars improved. Will likely need further optimization. CM order for [facility]hc PT. 06/28: Complaining of rib pain. Will order morphine as needed. Plan for discharge tomorrow once home health care PT and home oxygen set up. Assessment and Plan Neuro: NAD -Reorientation as needed -Maintain sleep-wake cycle -Avoid delirium -As needed analgesia -As needed anxiolytics -Resume home gabapentin -UDS positive for amphetamine Cardio: h/o HTN -Blood pressure monitor per protocol -Resume home heart hypertensives as needed -Resume home aspirin Respiratory: COPD exacerbation, h/o COPD -CCM consulted, appreciate recommendations -Supplemental oxygen as needed -SPO2 monitoring -Pulmonary hygiene -Methylprednisone -ambulatory O2 test pending to assess for home O2 need. GI: Morbid obesity -ADA diet -Encouraged lifestyle and dietary changes upon discharge -24+210 mL -BR: Senokot -PPI : Hyponatremia, hypochloremia, metabolic acidosis -Trend BMP -Strict urine output -MIVF Endo: h/o IDDM -Hemoglobin A1c: 12 -Basal bolus regimen: lantus qhs+ insulin regular achs -SSI -Accu-Cheks AC at bedtime Heme: Leukocytosis -Monitor fever and WBC curve -Transfuse to hemoglobin of 7 -Trend CBC -SCDs to bilateral lower extremities while in bed -lovenox subq ID: Sepsis, lactic acidosis, left-sided pneumonia -Presents with lactic acid of 4.6, hypoxia, leukocytosis and pneumonia on CXR -CXR with left-sided pneumonia -COVID-19 PCR negative -Antibiotic therapy with ceftriaxone, dc vancomycin -06/23 blood cultures with gram-positive cocci in pairs 3 out of 4 bottles --> S. pneumonia -Follow-up repeat blood and urine culture -Send sputum culture -TTE - negative for vegetations/endocarditis -infectious disease consultation History Interval history: complaining of rib pain this AM. Hospitalist Physical - Physical exam Narrative exam: General appearance: Present: no acute distress, well-nourished, obese - EENT Eyes: Present: PERRL, EOM intact ENT: clear oral mucosa, dentition normal - Neck Neck: Present: normal ROM - Respiratory Respiratory effort: normal Respiratory: bilateral: diminished - Cardiovascular Rhythm: regular Heart Sounds: Present: S1 & S2. Absent: systolic murmur, diastolic murmur - Extremities Extremities: no ischemia, pulses intact, pulses symmetrical, No edema, normal temperature, normal color Peripheral Pulses: within normal limits - Abdominal General gastrointestinal: soft, non-tender, non-distended, normal bowel sounds - Integumentary Integumentary: Present: warm, dry - Psychiatric Psychiatric: cooperative - Neurologic Neurologic: CNII-XII intact, no focal deficits, moves all extremities - Allied Health Allied health notes reviewed: nursing, RT, social work - Constitutional Vitals: Temp Pulse Resp BP Pulse Ox 98.2 F 62 20 126/73 95 06/28/21 04:53 06/28/21 04:53 06/28/21 04:53 06/28/21 04:39 06/28/21 12:29 General appearance: Present: no acute distress, well-nourished, obese HEART Score - HEART Score Age: 45-65 Risk factors: > 3 risk factors or hx of atherosclerotic disease Troponin: Troponin T < 0.010 ng/mL (0.00-0.029) 06/23/21 Unknown Troponin: 1-3x normal limit - Critical Actions Critical Actions: 0-3 pts:0.9-1.7%risk of adverse cardiac event.Candidate for discharge Results - Labs CBC & Chem 7: 06/25/21 08:05 06/28/21 04:22 Labs: Laboratory Last Values WBC 16.2 K/mm3 (4.5-11.0) H 06/25/21 08:05 RBC 5.42 M/mm3 (3.65-5.03) H 06/25/21 08:05 Hgb 15.6 gm/dl (11.8-15.2) H 06/25/21 08:05 Hct 48.9 % (35.5-45.6) H 06/25/21 08:05 MCV 90 fl (84-94) 06/25/21 08:05 MCH 29 pg (28-32) 06/25/21 08:05 MCHC 32 % (32-34) 06/25/21 08:05 RDW 13.7 % (13.2-15.2) 06/25/21 08:05 Plt Count 144 K/mm3 (140-440) 06/25/21 08:05 Add Manual Diff Complete 06/24/21 15:11 Total Counted 100 06/24/21 15:11 Seg Neutrophils % Purchasing [employer]ing Clerk 06/24/21 15:11 Seg Neuts % (Manual) 88.0 % (40.0-70.0) H 06/24/21 15:11 Band Neutrophils % 3.0 % 12/15/21 15:11 Lymphocytes % (Manual) 5.0 % (13.4-35.0) L 06/24/21 15:11 Monocytes % (Manual) 4.0 % (0.0-7.3) 06/24/21 15:11 Nucleated RBC % Not Reportable 06/24/21 15:11 Seg Neutrophils # Man 21.6 K/mm3 (1.8-7.7) H 06/24/21 15:11 Band Neutrophils # 0.7 K/mm3 06/24/21 15:11 Lymphocytes # (Manual) 1.2 K/mm3 (1.2-5.4) 06/24/21 15:11 Abs React Lymphs (Man) 0.0 K/mm3 06/24/21 15:11 Monocytes # (Manual) 1.0 K/mm3 (0.0-0.8) H 06/24/21 15:11 Eosinophils # (Manual) 0.0 K/mm3 (0.0-0.4) 06/24/21 15:11 Basophils # (Manual) 0.0 K/mm3 (0.0-0.1) 06/24/21 15:11 Metamyelocytes # 0.0 K/mm3 06/24/21 15:11 Myelocytes # 0.0 K/mm3 06/24/21 15:11 Promyelocytes # 0.0 K/mm3 06/24/21 15:11 Blast Cells # 0.0 K/mm3 06/24/21 15:11 WBC Morphology Not Reportable 06/24/21 15:11 Hypersegmented Neuts Not Reportable 06/24/21 15:11 Hyposegmented Neuts Not Reportable 06/24/21 15:11 Hypogranular Neuts Not Reportable 06/24/21 15:11 Smudge Cells Not Reportable 06/24/21 15:11 Toxic Granulation Not Reportable 06/24/21 15:11 Toxic Vacuolation Not Reportable 06/24/21 15:11 Dohle Bodies Not Reportable 06/24/21 15:11 Pelger-Huet Anomaly Not Reportable 06/24/21 15:11 Rodney Rods Not Reportable 06/24/21 15:11 Platelet Estimate Consistent w auto 06/24/21 15:11 Clumped Platelets Not Reportable 06/24/21 15:11 Plt Clumps, EDTA Not Reportable 06/24/21 15:11 Large Platelets 1+ 06/24/21 15:11 Giant Platelets Not Reportable 06/24/21 15:11 Platelet Satelliting Not Reportable 06/24/21 15:11 Plt Morphology Comment Not Reportable 06/24/21 15:11 RBC Morphology Not Reportable 06/24/21 15:11 Dimorphic RBCs Not Reportable 06/24/21 15:11 Polychromasia Not Reportable 06/24/21 15:11 Hypochromasia Not Reportable 06/24/21 15:11 Poikilocytosis Not Reportable 06/24/21 15:11 Anisocytosis Not Reportable 06/24/21 15:11 Microcytosis Not Reportable 06/24/21 15:11 Macrocytosis Not Reportable 06/24/21 15:11 Spherocytes Not Reportable 06/24/21 15:11 Pappenheimer Bodies Not Reportable 06/24/21 15:11 Sickle Cells Not Reportable 06/24/21 15:11 Target Cells Not Reportable 06/24/21 15:11 Tear Drop Cells Not Reportable 06/24/21 15:11 Ovalocytes Not Reportable 06/24/21 15:11 Helmet Cells Not Reportable 06/24/21 15:11 S[place] Bodies Not Reportable 06/24/21 15:11 Drake Rings Not Reportable 06/24/21 15:11 [place] Cells Not Reportable 06/24/21 15:11 Bite Cells Not Reportable 06/24/21 15:11 Crenated Cell Not Reportable 06/24/21 15:11 Elliptocytes Not Reportable 06/24/21 15:11 Acanthocytes (Spur) Not Reportable 06/24/21 15:11 Rouleaux Not Reportable 06/24/21 15:11 Hemoglobin C Crystals Not Reportable 06/24/21 15:11 Schistocytes Not Reportable 06/24/21 15:11 Malaria parasites Not Reportable 06/24/21 15:11 Lewis Bodies Not Reportable 06/24/21 15:11 Hem Pathologist Commnt No 06/24/21 15:11 PT 17.8 Sec. (12.2-14.9) H 06/23/21 Unknown INR 1.33 (0.87-1.13) H 06/23/21 Unknown APTT 31.4 Sec. (24.2-36.6) 06/23/21 Unknown Sodium 135 mmol/L (137-145) L 06/28/21 04:22 Potassium 3.8 mmol/L (3.6-5.0) 06/28/21 04:22 Chloride 97.5 mmol/L (98-107) L 06/28/21 04:22 Carbon Dioxide 23 mmol/L (22-30) 06/28/21 04:22 Anion Gap 18 mmol/L 06/28/21 04:22 BUN 15 mg/dL (9-20) 06/28/21 04:22 Creatinine 0.3 mg/dL (0.8-1.3) L 06/28/21 04:22 Estimated GFR > 60 ml/min 06/28/21 04:22 BUN/Creatinine Ratio 50 % 06/28/21 04:22 Glucose 269 mg/dL (75-100) H 06/28/21 04:22 POC Glucose 316 mg/dL (70-105) H 06/28/21 10:38 Hemoglobin A1c 12.0 % (4-6) H 06/25/21 08:05 Lactic Acid 4.60 mmol/L (0.7-2.0) H* 06/23/21 Unknown Calcium 8.4 mg/dL (8.4-10.2) 06/28/21 04:22 Phosphorus 2.90 mg/dL (2.5-4.5) 06/24/21 08:17 Magnesium 2.30 mg/dL (1.7-2.3) 06/24/21 08:17 Total Bilirubin 2.60 mg/dL (0.1-1.2) H 06/23/21 Unknown AST 42 units/L (5-40) H 06/23/21 Unknown ALT 36 units/L (7-56) 06/23/21 Unknown Alkaline Phosphatase 69 units/L (35-129) 06/23/21 Unknown Troponin T < 0.010 ng/mL (0.00-0.029) 06/23/21 Unknown NT-Pro-B Natriuret Pep 2555 pg/mL (0-900) H 06/23/21 Unknown Total Protein 6.8 g/dL (6.3-8.2) 06/23/21 Unknown Albumin 2.9 g/dL (3.9-5) L 06/23/21 Unknown Albumin/Globulin Ratio 0.7 % 06/23/21 Unknown Urine Color Yellow (Yellow) 06/23/21 Unknown Urine Turbidity Clear (Clear) 06/23/21 Unknown Urine pH 5.0 (5.0-7.0) 06/23/21 Unknown Ur Specific [place] 1.023 (1.003-1.030) 06/23/21 Unknown Urine Protein 100 mg/dl mg/dL (Negative) 06/23/21 Unknown Urine Glucose (UA) >=500 mg/dL (Negative) 06/23/21 Unknown Urine Ketones Tr mg/dL (Negative) 06/23/21 Unknown Urine Blood Mod (Negative) 06/23/21 Unknown Urine Nitrite Neg (Negative) 06/23/21 Unknown Urine Bilirubin Neg (Negative) 06/23/21 Unknown Urine Urobilinogen 2.0 mg/dL (<2.0) 06/23/21 Unknown Ur Leukocyte Esterase Neg (Negative) 06/23/21 Unknown Urine WBC (Auto) 3.0 /HPF (0.0-6.0) 06/23/21 Unknown Urine RBC (Auto) 1.0 /HPF (0.0-6.0) 06/23/21 Unknown U Epithel Cells (Auto) 1.0 /HPF (0-13.0) 06/23/21 Unknown Vancomycin Trough 7.4 ug/mL (5.0-20.0) 06/26/21 06:01 Urine Opiates Screen Presumptive negative 06/23/21 Unknown Urine Methadone Screen Presumptive negative 06/23/21 Unknown Ur Barbiturates Screen Presumptive negative 06/23/21 Unknown Ur Phencyclidine Scrn Presumptive negative 06/23/21 Unknown Ur Amphetamines Screen Presumptive positive 06/23/21 Unknown U Benzodiazepines Scrn Presumptive negative 06/23/21 Unknown Urine Cocaine Screen Presumptive negative 06/23/21 Unknown U Marijuana (THC) Screen Presumptive negative 06/23/21 Unknown Drugs of Abuse Note Disclamer 06/23/21 Unknown Coronavirus (PCR) Negative (Negative) 06/24/21 Unknown Microbiology: Microbiology 06/25/21 16:06 Peripheral/Venous Blood Culture - Preliminary NO GROWTH AFTER 48 HOURS 06/25/21 16:15 Peripheral/Venous Blood Culture - Preliminary NO GROWTH AFTER 48 HOURS 06/23/21 13:15 Peripheral/Venous Blood Culture - Preliminary Streptococcus Pneumoniae Ayala/IV: Voiding Method Toilet Active Medications - Current Medications Current Medications: Generic Name Dose Route Start Last Admin Trade Name Freq PRN Reason Stop Dose Admin Acetaminophen 650 mg 06/24/21 07:34 06/28/21 00:59 Acetaminophen 325 Mg Tab PO 650 mg Q4H PRN Administration Pain MILD(1-3)/Fever >100.5/DAS Albuterol 2.5 mg 06/24/21 12:05 Albuterol 2.5 Mg/3 Ml Nebu IH Q4HRT PRN Shortness Of Breath Alprazolam 0.125 mg 06/24/21 05:04 06/26/21 22:47 Alprazolam 0.25 Mg Tab PO 0.125 mg Q8H PRN Administration Anxiety Aspirin 81 mg 06/24/21 10:00 06/28/21 09:51 Aspirin Ec 81 Mg Tab PO 81 mg DAILY YONAS Administration Famotidine 20 mg 06/24/21 10:00 06/28/21 09:51 Famotidine 20 Mg Tab PO 20 mg BID YONAS Administration Ceftriaxone Sodium 2 gm in 100 mls @ 200 mls/hr 06/25/21 14:00 06/28/21 09:54 Rocephin/Ns 2 Gm/100 Ml IV 200 mls/hr Q24HR YONAS Administration Protocol Insulin Glargine 40 units 06/27/21 22:00 06/27/21 22:26 Insulin Glargine 100 Units/Ml SUB-Q 40 units QHS YONAS Administration Insulin Human Lispro 0 unit 06/24/21 07:30 06/28/21 13:03 Insulin Lispro 100 Unit/Ml SUB-Q 8 unit ACHS [facility] Administration Protocol Insulin Human Regular 15 units 06/27/21 14:22 06/28/21 13:04 Insulin Regular, Human 100 Units/1 Ml SUB-Q [address] [facility] Administration Methylprednisolone Sodium Succinate 40 mg 06/28/21 10:00 06/28/21 09:51 Methylprednisolone Sod Succinate 40 Mg/1 Ml Inj IV 40 mg Q24HR YONAS Administration Ondansetron HCl 4 mg 06/24/21 07:34 Ondansetron 4 Mg/2 Ml Inj IV Q3H PRN Nausea And Vomiting Senna 17.2 mg 06/24/21 22:00 12/18/21 22:26 Sennosides 8.6 Mg Tab PO 17.2 mg QHS YONAS Administration Sodium Chloride 10 ml 06/24/21 10:00 06/28/21 13:03 Sodium Chloride 0.9% 10 Ml Flush Syringe IV 10 ml BID YONAS Administration Sodium Chloride 10 ml 06/24/21 07:34 Sodium Chloride 0.9% 10 Ml Flush Syringe IV PRN PRN LINE FLUSH
[2021-06-28] MEDS: MORPHINE 2 MG/1 ML INJ IV PRN ×2 (17:40→22:34)
[2021-06-28] MEDS: INSULIN GLARGINE 100 UNITS/ML SUB-Q SCH (22:31)
[2021-06-28] MEDS: SENNOSIDES 8.6 MG TAB PO SCH (22:31)
--- NOTE | 2021-06-29 11:07 | Discharge Summary ---
Providers - Providers Date of Admission: 06/23/21 15:16 Date of discharge: 06/29/21 Attending physician: CARLOS GALARZA MD 06/25/21 08:53 Consult to Physician [CONS] Routine Comment: Consulting Provider: SHERRY BANEGAS Physician Instructions: Reason For Exam: GPC bacteremia 06/25/21 11:43 Physical Therapy Evaluation and Treat [CONS] Routine Comment: Reason For Exam: debility, eval and tx. 06/27/21 07:35 Consult to Case Management [CONS] Routine Services Needed at Discharge: Home Health Services Notified:: CM Comment:: HHC PT 06/28/21 08:31 Consult to Case Management [CONS] Routine Services Needed at Discharge: Home O2 Notified:: CM 06/28/21 08:32 Consult to Case Management [CONS] Routine Services Needed at Discharge: Home Health Services Notified:: CM Comment:: home health care physical therapy Primary care physician: TALENT COORDINATOR Hospitalization Reason for admission: shortness of breath Condition: Fair Hospital course: This is a 55-year-old male with COPD, insulin-dependent diabetes complicated by neuropathy and hypertension admitted for COPD exacerbation, COVID-19 PUI, p neumonia Interval history: This is a 55-year-old male with COPD, insulin-dependent diabetes complicated by neuropathy, and hypertension who presented on 06/23 with complaints of shortness of breath via EMS who stated on their arrival patient's SPO2 was in the low 80s. He has been expressing shortness of breath for the past 3 days. He was placed on 3 L nasal cannula and his oxygen saturation increased to 92%. Work-up in the emergency department included a CXR which showed pneumonia and lab work showed leukocytosis, elevated INR, pseudohyponatremia, lactic acidosis and elevated proBNP. Patient was admitted to the hospital service to the ICU with consults to [facility] as a COVID-19 PUI with an acute exacerbation of COPD. 06/24: Patient has elevated blood glucose initiated on Lantus and SSI increased to high-dose. Solu-Medrol decreased. Blood culture grew gram-positive cocci in pairs and 3 out of 4 bottles. Antibiotics changed to vancomycin and cefepime from azithromycin and ceftriaxone. 06/25: Drowsy/Delirious this AM. Reoriented on bedside encounter. VSS stable. Patient had gabapentin this morning in addition having irregular sleep/wake cycles in icu. Will d/c gabapentin and ensure adequate sunlight during day as well as quiet/dark environment at night for patient. Repeat blood cultures obtained as admit blood cx grew gpc 3/4 bottles. NO fevers overnight. Continuing empiric coverage with vanc/cefepime IV. ID consultation obtained. Blood sugars also very elevated. RN just admin lantus and regular insulin this AM. Will escalate as needed for tighter glycemic control. PT assessment is also pending. 06/26: TTE negative for vegetations. Continue abx. Repeat cultures have not demonstrates growth. Abx coverage with ceftriaxone at this time per ID. Blood sugars in 400's likely steroid related. Will start taper of solumedrol. Lantus escalated to 40 units, added 10 units regular with meals. 06/27: Ambulatory O2 test. Blood sugars improved. Will likely need further optimization. CM order for [facility] PT. 06/28: Complaining of rib pain. Will order morphine as needed. Plan for discharge tomorrow once home health care PT and home oxygen set up. 06/29: No acute complaints this morning. Patient currently on room air so will no longer require home oxygen set up. He will be going home today with home health care service. Discussed with case management rounds. Medically clear for discharge. Patient will be discharged home with prescription for Levaquin 750 daily to complete total therapy 14 days as well as lantus 40 units qhs to be added in addition to humalog that the patient is already taking.. Currently awaiting [facility] for physical therapy. Assessment and Plan Neuro: NAD -Reorientation as needed -Maintain sleep-wake cycle -Avoid delirium -As needed analgesia -As needed anxiolytics -Resume home gabapentin -UDS positive for amphetamine Cardio: h/o HTN -Blood pressure monitor per protocol -Resume home heart hypertensives as needed -Resume home aspirin Respiratory: COPD exacerbation, h/o COPD, pneumonia -CCM consulted, appreciate recommendations -Supplemental oxygen as needed -SPO2 monitoring -Pulmonary hygiene -Methylprednisone -ambulatory O2 test pending to assess for home O2 need. GI: Morbid obesity -ADA diet -Encouraged lifestyle and dietary changes upon discharge -24+210 mL -BR: Senokot -PPI : Hyponatremia, hypochloremia, metabolic acidosis -Trend BMP -Strict urine output -MIVF Endo: h/o IDDM -Hemoglobin A1c: 12 -Basal bolus regimen: lantus qhs+ insulin regular achs -SSI -Accu-Cheks AC at bedtime Heme: Leukocytosis -Monitor fever and WBC curve -Transfuse to hemoglobin of 7 -Trend CBC -SCDs to bilateral lower extremities while in bed -lovenox subq ID: Severe Sepsis POA, lactic acidosis, left-sided pneumonia. S.Pneumonia bacteremia -Presents with lactic acid of 4.6, hypoxia, leukocytosis and pneumonia on CXR -CXR with left-sided pneumonia -COVID-19 PCR negative -Antibiotic therapy with ceftriaxone, dc vancomycin -06/23 blood cultures with gram-positive cocci in pairs 3 out of 4 bottles --> S. pneumonia -Follow-up repeat blood and urine culture -Send sputum culture -TTE - negative for vegetations/endocarditis -infectious disease consultation Disposition: HOME HEALTH CARE SERVICE Final Discharge Diagnosis (Prints w/discharge instructions): pneumonia Time spent for discharge: 35 Core Measure Documentation - Palliative Care Palliative Care/ Comfort Measures: Not Applicable - Core Measures Any of the following diagnoses?: none Exam - Physical Exam Narrative exam: General appearance: Present: no acute distress, well-nourished, obese - EENT Eyes: Present: PERRL, EOM intact ENT: clear oral mucosa, dentition normal - Neck Neck: Present: normal ROM - Respiratory Respiratory effort: normal Respiratory: bilateral: improved. - Cardiovascular Rhythm: regular Heart Sounds: Present: S1 & S2. Absent: systolic murmur, diastolic murmur - Extremities Extremities: no ischemia, pulses intact, pulses symmetrical, No edema, normal temperature, normal color Peripheral Pulses: within normal limits - Abdominal General gastrointestinal: soft, non-tender, non-distended, normal bowel sounds - Integumentary Integumentary: Present: warm, dry - Psychiatric Psychiatric: cooperative - Neurologic Neurologic: CNII-XII intact, no focal deficits, moves all extremities - Allied Health Allied health notes reviewed: nursing, RT, social work - Constitutional Vitals: Temp Pulse Resp BP Pulse Ox 99.7 F H 88 18 131/72 94 06/29/21 06:25 06/29/21 06:25 06/29/21 06:25 06/29/21 06:25 06/29/21 06:25 Plan Activity: no restrictions Plan of Treatment: Miguel A Charles. You were admitted for respiratory failure due to pneumonia. You are found to grow an organism called streptococcus pneumoniae in your blood stream. You are treated with IV antibiotics and improved. Your Covid test was negative this hospitalization. Your blood sugars were severely elevated throughout most of this hospitalization. We added a long-acting insulin for improved blood sugar control. He will be discharged home with prescription for Levaquin 750 mg p.o. daily x8 days as well as Lantus 40 units nightly. The Lantus should be added in addition to your current Humalog 25 units with meals. Please follow-up with your primary care doctor SANTIAGO as an outpatient. We are currently awaiting placement for home health service physical therapy. Follow up with: PRIMARY CARE, [Primary Care Provider] - 3-5 Days Prescriptions: Insulin Glargine [Lantus VIAL] 40 units SUB-Q QHS 30 Days #3 vial levoFLOXacin [Levaquin] 750 mg PO QDAY 8 Days #8 tablet
[2021-06-29] MEDS: INSULIN LISPRO 100 UNIT/ML SUB-Q SCH ×2 (11:24→14:21)
[2021-06-29] MEDS: INSULIN REGULAR, HUMAN 100 UNITS/1 ML SUB-Q SCH ×2 (11:26→14:21)
[2021-06-29] MEDS: ASPIRIN EC 81 MG TAB PO SCH (11:27)
[2021-06-29] MEDS: FAMOTIDINE 20 MG TAB PO SCH (11:27)
[2021-06-29] MEDS: cefTRIAXone/NS 2 GM/100 ML 2 GM/100 ML BAG IV SCH (11:27)
[2021-06-29] MEDS: methylPREDNISolone Sod Succinate 40 MG/1 ML INJ IV SCH (11:28)
--- NOTE | 2021-06-29 12:27 | Progress Note ---
Assessment and Plan Cultures: COVID-19 PCR: Negative 06/23/2021 blood culture: 3 of 4 bottles positive for Strep pneumo 06/25/2021 blood culture: no growth A/P: 55-year-old male with diabetes, hypertension, obesity, COPD admitted with shortness of breath for 2 to 3 days: #Sepsis, secondary to Strep pneumo bacteremia: from pneumonia. Urinary tox screen was positive for amphetamines, patient denies IVDU, states he smokes meth. TTE without obvious vegetations / endocarditis. #Left-sided pneumonia #Acute on chronic respiratory failure, COPD #Diabetes mellitus, uncontrolled: HbA1c 12.0 #Substance abuse: Urinary tox screen was positive for amphetamines Recs: OK for discharge on PO levofloxacin 750 mg daily to complete 14 days ending 07/08/2021 Will sign off. William Cooley MD, FACP, [facility] ([facility] O: [phone] F: [phone] Subjective Date of service: 06/29/21 Interval history: No complaints. On room air. Objective - Exam Narrative Exam: Physical Exam: Constitutional: awake, alert Head, Ears, Nose: Normocephalic, atraumatic. External ears, nose normal Eyes: Conjunctivae/corneas clear. No icterus. No ptosis. Neck: Supple, no meningeal signs Cardiovascular: S1, S2 + Respiratory: Few wheezes bilaterally GI: Soft, non-tender; bowel sounds normal. No peritoneal signs Musculoskeletal: No pedal edema, no cyanosis. Skin: No rash or abscess. Tattoos + Hem/Lymphatic: No palpable cervical or supraclavicular nodes. No lymphangitis Psych: no agitation Neurological: awake, alert, answering questions - Constitutional Vitals: Vital Signs Temp Pulse Resp BP Pulse Ox 99.7 F H 88 18 131/72 94 06/29/21 06:25 06/29/21 06:25 06/29/21 06:25 06/29/21 06:25 06/29/21 06:25 Temperature -Last 24 Hours Temperature 99.7 F Temperature 98.8 F Temperature 98.3 F - Labs CBC & Chem 7: 06/25/21 08:05 06/28/21 04:22 Labs: Abnormal lab results 06/28/21 06/28/21 06/29/21 Range/Units 16:39 21:57 08:10 POC Glucose 250 H 200 H 265 H (70-105) mg/dL 06/29/21 06/29/21 Range/Units 11:23 11:52 POC Glucose 341 H 325 H (70-105) mg/dL
[2021-06-29 12:54] VITALS: BP 122/89
[2021-06-29] MEDS ORDERED: INSULIN LISPRO 100 UNIT/ML SUB-Q ONE (15:07)
== END 2021-06-29 17:38 | disposition home health service (06) | DRG 871 ==
LOC: ED 10:57 → IMCU 15:16 → CC1 06-24 05:04 → 3A 06-24 17:59
PROVIDERS: ADMIT Internal Medicine; ATTEND Internal Medicine
DX: A40.3 Sepsis due to Streptococcus pneumoniae (principal); J96.01 Acute respiratory failure with hypoxia; J13 Pneumonia due to Streptococcus pneumoniae; R65.20 Severe sepsis without septic shock; E87.1 Hypo-osmolality and hyponatremia; J44.1 Chronic obstructive pulmonary disease with (acute) exacerbation; J44.0 Chronic obstructive pulmonary disease with (acute) lower respiratory infection; I50.9 Heart failure, unspecified; E11.9 Type 2 diabetes mellitus without complications; I11.0 Hypertensive heart disease with heart failure; E66.01 Morbid (severe) obesity due to excess calories; Z68.36 Body mass index [BMI] 36.0-36.9, adult; E87.8 Other disorders of electrolyte and fluid balance, not elsewhere classified; Z20.822 Contact with and (suspected) exposure to COVID-19
CPT/HCPCS: 36415; 71045; 80048; 80053; 80202; 80307; 81001; 82140; 82962; 83036; 83735; 83880; 84100; 84484; 85007; 85025; 85027; 85610; 85730; 87040; 87086; 87205; 93005; 93306; 94640; 94760; 99291; 99406; G0378; Q0162; Q9967; J0692; J0696; J1644; J1650; J1815; J1956; J2270; J2920; J2930; J3370; J3475; J7030; J7040; U0003